=== PATIENT | male | born 1940 | race Caucasian/White ===

== ENCOUNTER 2020-06-04 12:20 | Inpatient (IN) ==
[2020-06-04] MEDS ORDERED: *HR* FentaNYL (PF) 100 MCG/2 ML VIAL IVP ONE (12:30)
[2020-06-04] MEDS ORDERED: Isovue-370 500 ML BOTTLE IVP ONE (13:56)
[2020-06-04 14:26] LABS: Basophils % 0.3 %; Eosinophils % 0.3 %; Hematocrit 49.6 % (37.5-50.1); Hemoglobin 16.3 g/dL (12.9-16.9); Immature Granulocytes % 0.5 % (0-4); Lymphocytes # 1.2 K/mcL (0.6-4.6); Mean Corpuscular HGB Conc 32.9 g/dL (31.6-35.5); Mean Corpuscular Hemoglobin 30.5 pg (28.0-33.3); Mean Corpuscular Volume 92.9 fL (83.0-100.0); Mean Platelet Volume 11.1 fL (9.4-12.4); Monocytes # 1.4 K/mcL (0.0-1.3); Monocytes % 11.5 %; Neutrophils # 9.2 K/mcL (1.6-8.9); Platelet Count 163 K/mcL (140-400); Red Blood Count 5.34 M/mcL (4.19-5.50); Red Cell Distribution Width 13.4 % (11.5-14.5); Segmented Neutrophils % 77.4 %; White Blood Count 11.9 K/mcL (4.3-11.1)
[2020-06-04 14:45] LABS: BUN/Creatinine Ratio 14 (6-26); Blood Urea Nitrogen 14 mg/dL (8-23); Calcium 9.6 mg/dL (8.6-10.3); Carbon Dioxide 33 mEq/L (23-29); Chloride 101 mEq/L (98-107); Glucose 125 mg/dL (70-105); Osmolality,Calculated 292 (280-300); Sodium 140 mEq/L (136-145); eGFR For African Americans > 60 (> 60); eGFR For Non-African Americans > 60 (> 60)
[2020-06-04] MEDS ORDERED: Naloxone 0.4 MG/ML INJ IVP PRN (16:43)
[2020-06-04] MEDS ORDERED: Acetaminophen 325 MG TABLET PO PRN (16:56)
[2020-06-04] MEDS: *HR* OxyCODONE Immed Rel 5 MG TABLET PO PRN (18:07)
[2020-06-04] MEDS ORDERED: Albuterol 2.5 MG/3 ML NEBULIZER IH PRN (20:48)
[2020-06-05 01:43] LABS: Basophils % 0.2 %; Eosinophils % 0.2 %; Hematocrit 45.1 % (37.5-50.1); Hemoglobin 15.1 g/dL (12.9-16.9); Immature Granulocytes % 0.3 % (0-4); Lymphocytes # 1.6 K/mcL (0.6-4.6); Lymphocytes % 12.5 %; Mean Corpuscular HGB Conc 33.5 g/dL (31.6-35.5); Mean Corpuscular Volume 89.7 fL (83.0-100.0); Mean Platelet Volume 11.2 fL (9.4-12.4); Monocytes # 1.9 K/mcL (0.0-1.3); Monocytes % 14.6 %; Neutrophils # 9.5 K/mcL (1.6-8.9); Platelet Count 167 K/mcL (140-400); Red Blood Count 5.03 M/mcL (4.19-5.50); Red Cell Distribution Width 13.5 % (11.5-14.5); Segmented Neutrophils % 72.2 %; White Blood Count 13.1 K/mcL (4.3-11.1)
[2020-06-05 02:04] LABS: BUN/Creatinine Ratio 13 (6-26); Blood Urea Nitrogen 11 mg/dL (8-23); Calcium 9.1 mg/dL (8.6-10.3); Carbon Dioxide 29 mEq/L (23-29); Chloride 101 mEq/L (98-107); Glucose 152 mg/dL (70-105); Osmolality,Calculated 290 (280-300); Potassium 3.9 mEq/L (3.5-5.1); Sodium 139 mEq/L (136-145); eGFR For African Americans > 60 (> 60); eGFR For Non-African Americans > 60 (> 60)
[2020-06-05] MEDS ORDERED: Ondansetron 4 MG/2 ML VIAL IVP PRN ×2 (02:19→17:38)
[2020-06-05 02:49] LABS: ABG Base Excess 4 mEq/L (-2 to 3); ABG HCO3 31 mEq/L (21-27); ABG Oxygen Saturation 84 % (95-98); ABG PCO2 53 mmHg (35-45); ABG PH 7.37 pH Units (7.32-7.45); ABG PO2 51 mmHg (85-104); ABG TCO2 33 mEq/L (20-26)
[2020-06-05] MEDS ORDERED: amLODIPine 5 MG TABLET PO SCH (09:00)
[2020-06-05] MEDS: Ipratropium/Albuterol Neb 3 ML IH SCH ×5 (09:46→23:09)
[2020-06-05] MEDS: *HR* OxyCODONE Immed Rel 5 MG TABLET PO PRN (13:09)
[2020-06-05] MEDS ORDERED: Lidocaine -MPF 2% 2 ML VIAL ONE (13:35)
[2020-06-05] MEDS ORDERED: *HR* Propofol 200 MG/20 ML VIAL IVP ONE ×2 (13:35→15:45)
[2020-06-05] MEDS ORDERED: *HR* HYDROmorphone PF 0.5 MG/0.5 ML SYRINGE IVP PRN (15:20)
[2020-06-05] MEDS ORDERED: *HR* Succinylcholine 200 MG/10 ML VIAL IVP ONE (15:25)
[2020-06-05] MEDS ORDERED: Ondansetron 4 MG/2 ML VIAL ONE (15:26)
[2020-06-05] MEDS ORDERED: *HR* Rocuronium Bromide 50 MG/5 ML VIAL ONE (15:53)
[2020-06-05] MEDS ORDERED: EPHEDrine 50 MG/ML VIAL ONE (15:54)
[2020-06-05] MEDS ORDERED: *HR* OxyCODONE Immed Rel 5 MG TABLET PO PRN (17:38)
[2020-06-05] MEDS ORDERED: Albuterol 2.5 MG/3 ML NEBULIZER IH PRN (17:38)
[2020-06-05] MEDS ORDERED: Naloxone 0.4 MG/ML INJ IVP PRN (17:38)
[2020-06-05] MEDS ORDERED: Acetaminophen 325 MG TABLET PO PRN (17:38)
[2020-06-05] MEDS ORDERED: *HR* Heparin 5,000 UNIT/ML VIAL SQ SCH ×2 (18:00)
[2020-06-05 19:02] LABS: ABG Base Excess 2 mEq/L (-2 to 3); ABG HCO3 30 mEq/L (21-27); ABG Oxygen Saturation 89 % (95-98); ABG PCO2 60 mmHg (35-45); ABG PO2 63 mmHg (85-104); ABG TCO2 32 mEq/L (20-26); Blood Gas Modality CPAP/PS
[2020-06-05] MEDS ORDERED: 0.9 % Sodium Chloride 1,000 ML IVC ONE (21:22)
[2020-06-05] MEDS: CeFAZolin 2 GM/120 ML BAG IVPB SCH (23:50)
[2020-06-06] MEDS ORDERED: CeFAZolin 2 GM/120 ML BAG IVPB SCH
[2020-06-06 03:58] LABS: Hematocrit 42.5 % (37.5-50.1)
[2020-06-06 03:59] LABS: Hemoglobin 13.5 g/dL (12.9-16.9)
[2020-06-06] MEDS: Ipratropium/Albuterol Neb 3 ML IH SCH ×5 (04:13→19:37)
[2020-06-06 04:19] LABS: Calcium 8.1 mg/dL (8.6-10.3); Potassium 4.7 mEq/L (3.5-5.1)
[2020-06-06] MEDS: CeFAZolin 2 GM/120 ML BAG IVPB SCH (08:13)
[2020-06-06] MEDS: amLODIPine 5 MG TABLET PO SCH (08:14)
[2020-06-06] MEDS: Aspirin Enteric Coated 325 MG Tablet PO SCH (08:14)
[2020-06-06] MEDS ORDERED: Aspirin Enteric Coated 325 MG Tablet PO SCH (09:00)
[2020-06-06] MEDS: Ringers Solution, Lactated 1,000 ML IVC SCH (11:25)
[2020-06-07] MEDS: Ipratropium/Albuterol Neb 3 ML IH SCH ×7 (00:43→23:25)
[2020-06-07 01:35] LABS: Basophils % 0.2 %; Eosinophils # 0.1 K/mcL (0.0-0.6); Eosinophils % 0.3 %; Hematocrit 36.6 % (37.5-50.1); Hemoglobin 11.5 g/dL (12.9-16.9); Immature Granulocytes % 0.6 % (0-4); Lymphocytes # 1.5 K/mcL (0.6-4.6); Lymphocytes % 8.4 %; Mean Corpuscular HGB Conc 31.4 g/dL (31.6-35.5); Mean Corpuscular Hemoglobin 29.6 pg (28.0-33.3); Mean Corpuscular Volume 94.3 fL (83.0-100.0); Mean Platelet Volume 11.2 fL (9.4-12.4); Monocytes # 3.1 K/mcL (0.0-1.3); Monocytes % 16.9 %; Neutrophils # 13.4 K/mcL (1.6-8.9); Platelet Count 141 K/mcL (140-400); Red Blood Count 3.88 M/mcL (4.19-5.50); Red Cell Distribution Width 13.9 % (11.5-14.5); Segmented Neutrophils % 73.6 %; White Blood Count 18.2 K/mcL (4.3-11.1)
[2020-06-07 01:35] LABS: Bilirubin,Urine Negative (Negative); Blood,Urine Large (Negative); Clarity,Urine Clear (Clear); Color,Urine Yellow (Yellow); Glucose,Urine (UA) Normal (Normal); Ketones,Urine Trace mg/dL (Negative); Leukocyte Esterase,Urine Trace (Negative); Mucus,Urine Few per lpf (None-Few); Nitrite,Urine Negative (Negative); PH,Urine 5.5 pH Units (5.0-8.0); Protein,Urine 30 mg/dL (Neg-Trace); RBC,Urine TNTC per hpf (0-3); Specific Gravity,Urine 1.024 (1.010-1.025); Urobilinogen,Urine Normal (Normal)
[2020-06-07 01:49] LABS: ABG Base Excess 5 mEq/L (-2 to 3); ABG HCO3 32 mEq/L (21-27); ABG Oxygen Saturation 91 % (95-98); ABG PCO2 59 mmHg (35-45); ABG PH 7.34 pH Units (7.32-7.45); ABG PO2 66 mmHg (85-104); ABG TCO2 34 mEq/L (20-26)
[2020-06-07 02:01] LABS: BUN/Creatinine Ratio 25 (6-26); Blood Urea Nitrogen 34 mg/dL (8-23); Calcium 7.9 mg/dL (8.6-10.3); Carbon Dioxide 26 mEq/L (23-29); Chloride 98 mEq/L (98-107); Glucose 162 mg/dL (70-105); Osmolality,Calculated 289 (280-300); Potassium 4.3 mEq/L (3.5-5.1); Sodium 134 mEq/L (136-145); eGFR For African Americans > 60 (> 60); eGFR For Non-African Americans 51 (> 60)
[2020-06-07 07:59] LABS: ABG Base Excess 5 mEq/L (-2 to 3); ABG HCO3 32 mEq/L (21-27); ABG Oxygen Saturation 92 % (95-98); ABG PCO2 55 mmHg (35-45); ABG PH 7.37 pH Units (7.32-7.45); ABG PO2 69 mmHg (85-104); ABG TCO2 33 mEq/L (20-26)
[2020-06-07] MEDS ORDERED: Perflutren Lipid Microsphere 1.3 ML in 0.9 % Sodium Chloride 8.7 ML IVP PRN (08:11)
[2020-06-07] MEDS: Ringers Solution, Lactated 1,000 ML IVC SCH ×3 (09:01→13:33)
[2020-06-07] MEDS: Piperacillin/Tazobactam 3.375 GM in 0.9 % Sodium Chloride Mini Bag 100 ML IVPB SCH ×3 (09:08→23:52)
[2020-06-07 09:14] LABS: Adenovirus Not Detected (Not Detect); Coronavirus 229E Not Detected (Not Detect); Coronavirus HKU1 Not Detected (Not Detect); Coronavirus NL63 Not Detected (Not Detect); Coronavirus OC43 Not Detected (Not Detect)
[2020-06-07 09:15] LABS: Bordetella Pertussis Not Detected (Not Detect); Chlamydophila pneumoniae Not Detected (Not Detect); Human Metapneumovirus Not Detected (Not Detect); Human Rhinovirus/Enterovirus Not Detected (Not Detect); Influenza A Subtype 2009 H1 Not Detected (Not Detect); Influenza B Not Detected (Not Detect); Mycoplasma pneumoniae Not Detected (Not Detect); Parainfluenza Virus 1 Not Detected (Not Detect); Parainfluenza Virus 2 Not Detected (Not Detect); Parainfluenza Virus 3 Not Detected (Not Detect); Parainfluenza Virus 4 Not Detected (Not Detect); Respiratory Syncytial Virus Not Detected (Not Detect); SARS-CoV-2 Not Detected (Not Detect)
[2020-06-07] MEDS: Aspirin Enteric Coated 325 MG Tablet PO SCH (09:53)
[2020-06-07] MEDS: amLODIPine 5 MG TABLET PO SCH (09:53)
[2020-06-07] MEDS ORDERED: Ringers Solution, Lactated 1,000 ML IVC SCH (13:51)
[2020-06-07 16:11] LABS: Protein/Creatinine Ratio,Urine 0.26 mg/mg (0.00-0.20); Sodium, Urine 10.4 mEq/L
[2020-06-07] MEDS ORDERED: 0.9 % Sodium Chloride 1,000 ML ONE (17:35)
[2020-06-07] MEDS: 0.9 % Sodium Chloride 1,000 ML IVC SCH (18:01)
[2020-06-08] MEDS ORDERED: *HR* Metoprolol 5 MG/5 ML VIAL IVP ONE ×2 (01:25→01:26)
[2020-06-08 02:21] LABS: Alanine Aminotransferase 7 Units/L (7-52); Albumin 3.1 g/dL (3.5-5.7); Albumin/Globulin Ratio 1.1 (1.1-2.2); Alkaline Phosphatase 77 Units/L (34-104); Aspartate Amino Transferase 17 Units/L (13-39); BUN/Creatinine Ratio 27 (6-26); Bilirubin,Total 2.1 mg/dL (0.3-1.0); Blood Urea Nitrogen 31 mg/dL (8-23); Carbon Dioxide 27 mEq/L (23-29); Chloride 102 mEq/L (98-107); Globulin 2.8 g/dL (2.4-3.5); Glucose 156 mg/dL (70-105); Osmolality,Calculated 296 (280-300); Potassium 4.3 mEq/L (3.5-5.1); Sodium 138 mEq/L (136-145); Total Protein 5.9 g/dL (6.4-8.9); Troponin I < 0.03 ng/mL (< 0.04); eGFR For African Americans > 60 (> 60); eGFR For Non-African Americans > 60 (> 60)
[2020-06-08 03:20] LABS: Basophils % 0.2 %; Eosinophils # 0.1 K/mcL (0.0-0.6); Eosinophils % 0.7 %; Hematocrit 33.2 % (37.5-50.1); Hemoglobin 10.7 g/dL (12.9-16.9); Immature Granulocytes % 0.3 % (0-4); Lymphocytes % 8.8 %; Mean Corpuscular HGB Conc 32.2 g/dL (31.6-35.5); Mean Corpuscular Hemoglobin 30.4 pg (28.0-33.3); Mean Corpuscular Volume 94.3 fL (83.0-100.0); Mean Platelet Volume 11.1 fL (9.4-12.4); Monocytes # 2.1 K/mcL (0.0-1.3); Monocytes % 18.1 %; Neutrophils # 8.5 K/mcL (1.6-8.9); Platelet Count 156 K/mcL (140-400); Red Blood Count 3.52 M/mcL (4.19-5.50); Segmented Neutrophils % 71.9 %; White Blood Count 11.8 K/mcL (4.3-11.1)
[2020-06-08] MEDS: Ipratropium/Albuterol Neb 3 ML IH SCH ×6 (03:29→23:07)
[2020-06-08 03:54] LABS: Platelet Estimate Normal (Normal)
[2020-06-08] MEDS: *HR* Enoxaparin 40 MG/0.4 ML SYRINGE SQ SCH (06:43)
[2020-06-08] MEDS: 0.9 % Sodium Chloride 1,000 ML IVC SCH (08:25)
[2020-06-08] MEDS: Piperacillin/Tazobactam 3.375 GM in 0.9 % Sodium Chloride Mini Bag 100 ML IVPB SCH ×2 (08:25→16:35)
[2020-06-08] MEDS: *HR* Metoprolol 5 MG/5 ML VIAL IVP SCH ×3 (11:42→23:58)
[2020-06-08] MEDS ORDERED: E-Z-PAQUE (BARIUM SULF) SUSP 1 BOTTLE PO ONE (14:45)
[2020-06-08] MEDS ORDERED: E-Z-HD (BARIUM SULF) SUSPENSION PO ONE (14:45)
[2020-06-08] MEDS: amLODIPine 5 MG TABLET PO SCH (16:08)
[2020-06-09] MEDS: 0.9 % Sodium Chloride 1,000 ML IVC SCH ×2 (00:02→17:17)
[2020-06-09 00:56] LABS: Basophils % 0.3 %; Eosinophils # 0.1 K/mcL (0.0-0.6); Eosinophils % 1.3 %; Hematocrit 32.2 % (37.5-50.1); Hemoglobin 10.4 g/dL (12.9-16.9); Immature Granulocytes % 0.2 % (0-4); Lymphocytes # 1.1 K/mcL (0.6-4.6); Lymphocytes % 10.3 %; Mean Corpuscular HGB Conc 32.3 g/dL (31.6-35.5); Mean Corpuscular Hemoglobin 30.7 pg (28.0-33.3); Mean Platelet Volume 10.6 fL (9.4-12.4); Monocytes # 1.9 K/mcL (0.0-1.3); Monocytes % 18.3 %; Neutrophils # 7.1 K/mcL (1.6-8.9); Platelet Count 179 K/mcL (140-400); Red Blood Count 3.39 M/mcL (4.19-5.50); Red Cell Distribution Width 14.3 % (11.5-14.5); Segmented Neutrophils % 69.6 %; White Blood Count 10.2 K/mcL (4.3-11.1)
[2020-06-09 02:43] LABS: Platelet Estimate Normal (Normal)
[2020-06-09] MEDS: Ipratropium/Albuterol Neb 3 ML IH SCH ×6 (03:14→23:49)
[2020-06-09] MEDS: *HR* Metoprolol 5 MG/5 ML VIAL IVP SCH ×2 (06:10→12:50)
[2020-06-09] MEDS: *HR* Enoxaparin 40 MG/0.4 ML SYRINGE SQ SCH (06:11)
[2020-06-09] MEDS: Piperacillin/Tazobactam 3.375 GM in 0.9 % Sodium Chloride Mini Bag 100 ML IVPB SCH ×3 (09:17→17:16)
[2020-06-09] MEDS: amLODIPine 5 MG TABLET PO SCH (09:17)
[2020-06-09] MEDS: Nystatin SUSP 5 ML UD.LIQ PO SCH ×3 (12:49→20:21)
[2020-06-09] MEDS ORDERED: Isovue-370 500 ML BOTTLE IVP ONE (12:59)
[2020-06-09] MEDS: methylPREDNISolone 125 MG/2 ML VIAL IVP SCH (17:16)
[2020-06-10] MEDS: Piperacillin/Tazobactam 3.375 GM in 0.9 % Sodium Chloride Mini Bag 100 ML IVPB SCH ×4 (00:13→23:55)
[2020-06-10] MEDS: methylPREDNISolone 125 MG/2 ML VIAL IVP SCH ×2 (00:14→09:18)
[2020-06-10 01:28] LABS: Basophils % 0.1 %; Hematocrit 32.1 % (37.5-50.1); Hemoglobin 10.5 g/dL (12.9-16.9); Immature Granulocytes % 0.4 % (0-4); Lymphocytes # 0.5 K/mcL (0.6-4.6); Lymphocytes % 7.6 %; Mean Corpuscular HGB Conc 32.7 g/dL (31.6-35.5); Mean Corpuscular Hemoglobin 30.8 pg (28.0-33.3); Mean Corpuscular Volume 94.1 fL (83.0-100.0); Mean Platelet Volume 10.7 fL (9.4-12.4); Monocytes # 0.3 K/mcL (0.0-1.3); Monocytes % 4.2 %; Neutrophils # 5.9 K/mcL (1.6-8.9); Platelet Count 175 K/mcL (140-400); Red Blood Count 3.41 M/mcL (4.19-5.50); Red Cell Distribution Width 14.3 % (11.5-14.5); Segmented Neutrophils % 87.7 %; White Blood Count 6.7 K/mcL (4.3-11.1)
[2020-06-10 01:48] LABS: BUN/Creatinine Ratio 26 (6-26); Blood Urea Nitrogen 23 mg/dL (8-23); Calcium 8.3 mg/dL (8.6-10.3); Carbon Dioxide 27 mEq/L (23-29); Chloride 109 mEq/L (98-107); Glucose 220 mg/dL (70-105); Osmolality,Calculated 308 (280-300); Potassium 4.7 mEq/L (3.5-5.1); Sodium 144 mEq/L (136-145); eGFR For African Americans > 60 (> 60); eGFR For Non-African Americans > 60 (> 60)
[2020-06-10] MEDS: Ipratropium/Albuterol Neb 3 ML IH SCH ×6 (03:48→23:46)
[2020-06-10] MEDS: *HR* Enoxaparin 40 MG/0.4 ML SYRINGE SQ SCH (06:14)
[2020-06-10] MEDS ORDERED: Lidocaine -MPF 2% 2 ML VIAL ONE (07:23)
[2020-06-10] MEDS ORDERED: Ondansetron 4 MG/2 ML VIAL ONE (07:23)
[2020-06-10] MEDS ORDERED: *HR* Rocuronium Bromide 50 MG/5 ML VIAL ONE (07:23)
[2020-06-10] MEDS ORDERED: *HR* Succinylcholine 200 MG/10 ML VIAL IVP ONE (07:23)
[2020-06-10] MEDS ORDERED: Lidocaine -MPF 4% 5 ML AMPUL ONE (07:24)
[2020-06-10] MEDS: Nystatin SUSP 5 ML UD.LIQ PO SCH ×4 (11:17→20:22)
[2020-06-10] MEDS: amLODIPine 5 MG TABLET PO SCH (11:17)
[2020-06-10 15:14] LABS: Source of Body Fluid LEFT LOWER LOBE LUNG
[2020-06-10] MEDS: MethylPREDNISolone 40 MG/ML VIAL IVP SCH ×2 (16:13→23:55)
[2020-06-10 18:59] LABS: Volume of Body Fluid 21 mL
[2020-06-10 19:00] LABS: Appearance of Body Fluid Cloudy (Clear)
[2020-06-11] MEDS: Ipratropium/Albuterol Neb 3 ML IH SCH ×6 (03:56→23:00)
[2020-06-11 04:56] LABS: Basophils % 0.1 %; Hematocrit 31.6 % (37.5-50.1); Hemoglobin 10.2 g/dL (12.9-16.9); Immature Granulocytes % 0.7 % (0-4); Lymphocytes # 0.6 K/mcL (0.6-4.6); Lymphocytes % 8.5 %; Mean Corpuscular HGB Conc 32.3 g/dL (31.6-35.5); Mean Corpuscular Hemoglobin 31.1 pg (28.0-33.3); Mean Corpuscular Volume 96.3 fL (83.0-100.0); Mean Platelet Volume 10.9 fL (9.4-12.4); Monocytes # 0.9 K/mcL (0.0-1.3); Neutrophils # 5.9 K/mcL (1.6-8.9); Platelet Count 219 K/mcL (140-400); Red Blood Count 3.28 M/mcL (4.19-5.50); Red Cell Distribution Width 14.2 % (11.5-14.5); Segmented Neutrophils % 78.7 %; White Blood Count 7.4 K/mcL (4.3-11.1)
[2020-06-11 05:16] LABS: BUN/Creatinine Ratio 30 (6-26); Blood Urea Nitrogen 29 mg/dL (8-23); Calcium 8.2 mg/dL (8.6-10.3); Carbon Dioxide 29 mEq/L (23-29); Chloride 105 mEq/L (98-107); Glucose 235 mg/dL (70-105); Osmolality,Calculated 305 (280-300); Potassium 4.2 mEq/L (3.5-5.1); Sodium 141 mEq/L (136-145); eGFR For African Americans > 60 (> 60); eGFR For Non-African Americans > 60 (> 60)
[2020-06-11] MEDS: *HR* Enoxaparin 40 MG/0.4 ML SYRINGE SQ SCH (06:21)
[2020-06-11] MEDS: MethylPREDNISolone 40 MG/ML VIAL IVP SCH ×2 (08:21→18:51)
[2020-06-11] MEDS: amLODIPine 5 MG TABLET PO SCH (08:22)
[2020-06-11] MEDS: Piperacillin/Tazobactam 3.375 GM in 0.9 % Sodium Chloride Mini Bag 100 ML IVPB SCH ×2 (08:26→18:52)
[2020-06-11] MEDS: Nystatin SUSP 5 ML UD.LIQ PO SCH ×4 (08:30→21:49)
[2020-06-12] MEDS: MethylPREDNISolone 40 MG/ML VIAL IVP SCH ×4 (00:11→23:07)
[2020-06-12] MEDS: Piperacillin/Tazobactam 3.375 GM in 0.9 % Sodium Chloride Mini Bag 100 ML IVPB SCH ×4 (00:12→23:07)
[2020-06-12 01:11] LABS: Basophils % 0.1 %; Hematocrit 29.2 % (37.5-50.1); Hemoglobin 9.4 g/dL (12.9-16.9); Immature Granulocytes % 1.2 % (0-4); Lymphocytes # 0.7 K/mcL (0.6-4.6); Lymphocytes % 8.7 %; Mean Corpuscular HGB Conc 32.2 g/dL (31.6-35.5); Mean Corpuscular Hemoglobin 30.1 pg (28.0-33.3); Mean Corpuscular Volume 93.6 fL (83.0-100.0); Mean Platelet Volume 11.1 fL (9.4-12.4); Monocytes % 13.3 %; Neutrophils # 5.9 K/mcL (1.6-8.9); Platelet Count 222 K/mcL (140-400); Red Blood Count 3.12 M/mcL (4.19-5.50); Red Cell Distribution Width 13.9 % (11.5-14.5); Segmented Neutrophils % 76.7 %; White Blood Count 7.7 K/mcL (4.3-11.1)
[2020-06-12 01:30] LABS: BUN/Creatinine Ratio 32 (6-26); Blood Urea Nitrogen 30 mg/dL (8-23); Carbon Dioxide 28 mEq/L (23-29); Chloride 104 mEq/L (98-107); Glucose 232 mg/dL (70-105); Osmolality,Calculated 298 (280-300); Potassium 4.5 mEq/L (3.5-5.1); Sodium 137 mEq/L (136-145); eGFR For African Americans > 60 (> 60); eGFR For Non-African Americans > 60 (> 60)
[2020-06-12] MEDS: Ipratropium/Albuterol Neb 3 ML IH SCH ×6 (04:18→23:20)
[2020-06-12] MEDS: *HR* Enoxaparin 40 MG/0.4 ML SYRINGE SQ SCH (04:44)
[2020-06-12] MEDS: amLODIPine 5 MG TABLET PO SCH (08:55)
[2020-06-12] MEDS: Nystatin SUSP 5 ML UD.LIQ PO SCH ×4 (08:56→20:46)
[2020-06-12] MEDS ORDERED: D5% in Water 1,000 ML IVC PRN (17:10)
[2020-06-12] MEDS ORDERED: *HR* Dextrose 50 % in Water (Vial) 50 ML VIAL IVP PRN (17:10)
[2020-06-12] MEDS ORDERED: Dextrose Gel 15 GM/37.5 ML TUBE PO PRN ×2 (17:10)
[2020-06-12] MEDS: Insulin LISPRO 300 UNITS/3 ML VIAL SUBQ SCH (20:46)
[2020-06-13 01:55] LABS: BUN/Creatinine Ratio 30 (6-26); Blood Urea Nitrogen 28 mg/dL (8-23); Calcium 8.1 mg/dL (8.6-10.3); Carbon Dioxide 27 mEq/L (23-29); Chloride 103 mEq/L (98-107); Glucose 248 mg/dL (70-105); Magnesium 1.9 mg/dL (1.6-2.6); Osmolality,Calculated 298 (280-300); Potassium 4.2 mEq/L (3.5-5.1); Sodium 137 mEq/L (136-145); eGFR For African Americans > 60 (> 60); eGFR For Non-African Americans > 60 (> 60)
[2020-06-13] MEDS: Ipratropium/Albuterol Neb 3 ML IH SCH ×6 (03:46→23:03)
[2020-06-13] MEDS: *HR* Enoxaparin 40 MG/0.4 ML SYRINGE SQ SCH (06:05)
[2020-06-13] MEDS: amLODIPine 5 MG TABLET PO SCH (08:25)
[2020-06-13] MEDS: Nystatin SUSP 5 ML UD.LIQ PO SCH ×4 (08:25→21:01)
[2020-06-13] MEDS: MethylPREDNISolone 40 MG/ML VIAL IVP SCH ×2 (08:26→16:17)
[2020-06-13] MEDS: Piperacillin/Tazobactam 3.375 GM in 0.9 % Sodium Chloride Mini Bag 100 ML IVPB SCH ×2 (08:26→16:16)
[2020-06-13] MEDS: Insulin LISPRO 300 UNITS/3 ML VIAL SUBQ SCH ×4 (08:26→21:00)
[2020-06-13] MEDS: Vancomycin 1,250 MG/262.5 ML IV.SOLN IVPB SCH (17:27)
[2020-06-14] MEDS: Piperacillin/Tazobactam 3.375 GM in 0.9 % Sodium Chloride Mini Bag 100 ML IVPB SCH ×3 (00:38→16:39)
[2020-06-14] MEDS: MethylPREDNISolone 40 MG/ML VIAL IVP SCH ×3 (00:45→16:39)
[2020-06-14 02:18] LABS: ABG Base Excess 4 mEq/L (-2 to 3); ABG HCO3 29 mEq/L (21-27); ABG Oxygen Saturation 95 % (95-98); ABG PCO2 43 mmHg (35-45); ABG PH 7.44 pH Units (7.32-7.45); ABG PO2 72 mmHg (85-104); ABG TCO2 30 mEq/L (20-26); Blood Gas Modality ASSIST CONTROL
[2020-06-14 02:34] LABS: Hemoglobin 10.9 g/dL (12.9-16.9); Mean Corpuscular HGB Conc 32.1 g/dL (31.6-35.5); Mean Corpuscular Hemoglobin 30.1 pg (28.0-33.3); Mean Corpuscular Volume 93.9 fL (83.0-100.0); Platelet Count 243 K/mcL (140-400); Red Blood Count 3.62 M/mcL (4.19-5.50); Red Cell Distribution Width 14.3 % (11.5-14.5); White Blood Count 10.2 K/mcL (4.3-11.1)
[2020-06-14 02:44] LABS: BUN/Creatinine Ratio 28 (6-26); Blood Urea Nitrogen 28 mg/dL (8-23); Carbon Dioxide 31 mEq/L (23-29); Chloride 103 mEq/L (98-107); Glucose 224 mg/dL (70-105); Osmolality,Calculated 294 (280-300); Potassium 4.8 mEq/L (3.5-5.1); Sodium 136 mEq/L (136-145); eGFR For African Americans > 60 (> 60); eGFR For Non-African Americans > 60 (> 60)
[2020-06-14] MEDS: Ipratropium/Albuterol Neb 3 ML IH SCH ×2 (03:53→07:40)
[2020-06-14] MEDS: *HR* Enoxaparin 40 MG/0.4 ML SYRINGE SQ SCH (05:57)
[2020-06-14] MEDS: Vancomycin 1,250 MG/262.5 ML IV.SOLN IVPB SCH ×2 (05:57→16:40)
[2020-06-14] MEDS: Nystatin SUSP 5 ML UD.LIQ PO SCH ×4 (09:20→21:53)
[2020-06-14] MEDS: amLODIPine 5 MG TABLET PO SCH (09:21)
[2020-06-14] MEDS: Insulin LISPRO 300 UNITS/3 ML VIAL SUBQ SCH ×4 (09:22→21:56)
[2020-06-14] MEDS: Acetylcysteine 10% 2 ML INHSOL IH SCH ×4 (11:15→23:18)
[2020-06-14] MEDS: Albuterol 2.5 MG/3 ML NEBULIZER IH SCH ×3 (15:36→23:18)
[2020-06-14] MEDS: Furosemide 20 MG/2 ML VIAL IVP SCH (17:59)
[2020-06-15] MEDS: MethylPREDNISolone 40 MG/ML VIAL IVP SCH ×3 (00:43→16:50)
[2020-06-15] MEDS: Piperacillin/Tazobactam 3.375 GM in 0.9 % Sodium Chloride Mini Bag 100 ML IVPB SCH ×3 (00:43→16:51)
[2020-06-15] MEDS: Albuterol 2.5 MG/3 ML NEBULIZER IH SCH ×6 (03:32→23:53)
[2020-06-15] MEDS: Acetylcysteine 10% 2 ML INHSOL IH SCH ×6 (03:32→23:53)
[2020-06-15 04:09] LABS: Hematocrit 34.9 % (37.5-50.1); Hemoglobin 11.1 g/dL (12.9-16.9); Mean Corpuscular HGB Conc 31.8 g/dL (31.6-35.5); Mean Corpuscular Hemoglobin 29.7 pg (28.0-33.3); Mean Corpuscular Volume 93.3 fL (83.0-100.0); Mean Platelet Volume 10.8 fL (9.4-12.4); Platelet Count 241 K/mcL (140-400); Red Blood Count 3.74 M/mcL (4.19-5.50); Red Cell Distribution Width 14.6 % (11.5-14.5)
[2020-06-15 04:31] LABS: BUN/Creatinine Ratio 33 (6-26); Blood Urea Nitrogen 31 mg/dL (8-23); Carbon Dioxide 29 mEq/L (23-29); Chloride 103 mEq/L (98-107); Glucose 218 mg/dL (70-105); Osmolality,Calculated 299 (280-300); Potassium 4.1 mEq/L (3.5-5.1); Sodium 138 mEq/L (136-145); eGFR For African Americans > 60 (> 60); eGFR For Non-African Americans > 60 (> 60)
[2020-06-15] MEDS: Vancomycin 1,500 MG/265 ML IV.SOLN IVPB SCH ×2 (06:00→17:30)
[2020-06-15] MEDS: *HR* Enoxaparin 40 MG/0.4 ML SYRINGE SQ SCH (06:01)
[2020-06-15] MEDS: amLODIPine 5 MG TABLET PO SCH (08:10)
[2020-06-15] MEDS: Insulin LISPRO 300 UNITS/3 ML VIAL SUBQ SCH ×4 (08:11→21:24)
[2020-06-15] MEDS: Furosemide 20 MG/2 ML VIAL IVP SCH ×2 (08:18→16:50)
[2020-06-15] MEDS: Nystatin SUSP 5 ML UD.LIQ PO SCH ×4 (08:18→20:01)
[2020-06-15] MEDS ORDERED: Lidocaine -MPF 4% 5 ML AMPUL ONE (10:33)
[2020-06-15] MEDS ORDERED: *HR* Succinylcholine 200 MG/10 ML VIAL IVP ONE (10:33)
[2020-06-15] MEDS ORDERED: *HR* FentaNYL (PF) 100 MCG/2 ML VIAL ONE (10:34)
[2020-06-15] MEDS ORDERED: *HR* Propofol 200 MG/20 ML VIAL IVP ONE (10:34)
[2020-06-15] MEDS ORDERED: Lidocaine -MPF 2% 2 ML VIAL ONE (10:35)
[2020-06-15] MEDS ORDERED: Ondansetron 4 MG/2 ML VIAL ONE (10:35)
[2020-06-15] MEDS ORDERED: *HR* HYDROmorphone PF 0.5 MG/0.5 ML SYRINGE IVP PRN (11:22)
[2020-06-15] MEDS ORDERED: *HR* OxyCODONE Immed Rel 5 MG TABLET PO PRN (11:22)
[2020-06-15] MEDS ORDERED: Promethazine 6.25 MG in Water for inj. (sterile) 20 ML IVPB PRN (11:22)
[2020-06-15] MEDS ORDERED: Ondansetron 4 MG/2 ML VIAL IVP PRN (11:22)
[2020-06-15 17:42] LABS: Appearance of Body Fluid Cloudy (Clear); Volume of Body Fluid 20 mL
[2020-06-16] MEDS: MethylPREDNISolone 40 MG/ML VIAL IVP SCH ×3 (00:38→16:22)
[2020-06-16] MEDS: Piperacillin/Tazobactam 3.375 GM in 0.9 % Sodium Chloride Mini Bag 100 ML IVPB SCH ×3 (00:38→16:22)
[2020-06-16] MEDS: Acetylcysteine 10% 2 ML INHSOL IH SCH ×6 (03:46→23:40)
[2020-06-16] MEDS: Albuterol 2.5 MG/3 ML NEBULIZER IH SCH ×6 (03:46→23:40)
[2020-06-16] MEDS: *HR* Enoxaparin 40 MG/0.4 ML SYRINGE SQ SCH (05:50)
[2020-06-16] MEDS: Vancomycin 1,500 MG/265 ML IV.SOLN IVPB SCH (05:50)
[2020-06-16] MEDS: Furosemide 20 MG/2 ML VIAL IVP SCH ×2 (07:47→16:22)
[2020-06-16] MEDS: amLODIPine 5 MG TABLET PO SCH (07:47)
[2020-06-16] MEDS: Nystatin SUSP 5 ML UD.LIQ PO SCH ×4 (07:50→21:07)
[2020-06-16] MEDS: Insulin LISPRO 300 UNITS/3 ML VIAL SUBQ SCH ×4 (07:54→21:06)
[2020-06-17] MEDS: MethylPREDNISolone 40 MG/ML VIAL IVP SCH ×3 (00:43→16:58)
[2020-06-17 02:39] LABS: Hematocrit 35.2 % (37.5-50.1); Hemoglobin 11.6 g/dL (12.9-16.9); Mean Corpuscular Hemoglobin 30.4 pg (28.0-33.3); Mean Corpuscular Volume 92.4 fL (83.0-100.0); Mean Platelet Volume 10.9 fL (9.4-12.4); Platelet Count 230 K/mcL (140-400); Red Blood Count 3.81 M/mcL (4.19-5.50); Red Cell Distribution Width 15.2 % (11.5-14.5); White Blood Count 13.2 K/mcL (4.3-11.1)
[2020-06-17 03:00] LABS: BUN/Creatinine Ratio 33 (6-26); Blood Urea Nitrogen 33 mg/dL (8-23); Calcium 7.8 mg/dL (8.6-10.3); Carbon Dioxide 29 mEq/L (23-29); Chloride 100 mEq/L (98-107); Glucose 221 mg/dL (70-105); Osmolality,Calculated 298 (280-300); Potassium 3.9 mEq/L (3.5-5.1); Sodium 137 mEq/L (136-145); eGFR For African Americans > 60 (> 60); eGFR For Non-African Americans > 60 (> 60)
[2020-06-17] MEDS: Albuterol 2.5 MG/3 ML NEBULIZER IH SCH ×6 (03:48→23:05)
[2020-06-17] MEDS: Acetylcysteine 10% 2 ML INHSOL IH SCH ×6 (03:48→23:05)
[2020-06-17] MEDS ORDERED: Vancomycin 1,250 MG/262.5 ML IV.SOLN IVPB SCH (05:00)
[2020-06-17] MEDS: *HR* Enoxaparin 40 MG/0.4 ML SYRINGE SQ SCH (06:16)
[2020-06-17] MEDS: Insulin LISPRO 300 UNITS/3 ML VIAL SUBQ SCH ×4 (08:20→20:43)
[2020-06-17] MEDS: Furosemide 20 MG/2 ML VIAL IVP SCH ×2 (08:22→16:58)
[2020-06-17] MEDS: amLODIPine 5 MG TABLET PO SCH (08:24)
[2020-06-17] MEDS: Nystatin SUSP 5 ML UD.LIQ PO SCH ×4 (08:24→20:46)
[2020-06-17] MEDS ORDERED: Calcium Gluconate 1gm/50mL 1 GM/50 ML BAG IVPB SCH (08:30)
[2020-06-17] MEDS ORDERED: Multivit/Ca/Min/Fe/FA 1 TAB TABLET PO SCH (09:00)
[2020-06-17] MEDS ORDERED: E-Z-HD (BARIUM SULF) SUSPENSION PO ONE (10:48)
[2020-06-17] MEDS ORDERED: E-Z-PAQUE (BARIUM SULF) SUSP 1 BOTTLE PO ONE (10:48)
[2020-06-17 18:50] VITALS: BP 148/86
== END 2020-06-17 23:12 ==
LOC: 3NENU 12:20 → EMEROOARM 12:20 → SUATTDRO 17:00 → 3NENU 18:12 → 2NNU 06-07 11:44
PROVIDERS: ADMIT Internal Medicine; ATTEND Internal Medicine

== ENCOUNTER 2020-06-23 09:08 | Inpatient (IN) ==
[2020-06-23] MEDS ORDERED: Ondansetron ODT 4 MG TAB.RAPDIS SL PRN (14:22)
[2020-06-23] MEDS ORDERED: Naloxone 0.4 MG/ML INJ IVP PRN (14:22)
[2020-06-23] MEDS ORDERED: Dexamethasone Sodium Phos/PF 10 MG/ML VIAL IVP ONE (14:27)
[2020-06-23 15:27] LABS: Hemoglobin 12.3 g/dL (12.9-16.9)
[2020-06-23 15:29] LABS: Basophils # 0.1 K/mcL (0.0-0.2); Basophils % 0.2 %; Hematocrit 38.8 % (37.5-50.1); Immature Granulocytes % 1.4 % (0-4); Lymphocytes # 0.9 K/mcL (0.6-4.6); Lymphocytes % 2.3 %; Mean Corpuscular HGB Conc 31.7 g/dL (31.6-35.5); Mean Corpuscular Hemoglobin 31.2 pg (28.0-33.3); Mean Corpuscular Volume 98.5 fL (83.0-100.0); Monocytes # 3.4 K/mcL (0.0-1.3); Monocytes % 9.2 %; Platelet Count 180 K/mcL (140-400); Red Blood Count 3.94 M/mcL (4.19-5.50); Red Cell Distribution Width 16.8 % (11.5-14.5); Segmented Neutrophils % 86.9 %
[2020-06-23] MEDS: Piperacillin/Tazobactam 3.375 GM in 0.9 % Sodium Chloride Mini Bag 100 ML IVPB SCH ×2 (15:36→23:21)
[2020-06-23] MEDS: Vancomycin 1,250 MG/262.5 ML IV.SOLN IVPB SCH (15:36)
[2020-06-23] MEDS ORDERED: Albuterol 2.5 MG/3 ML NEBULIZER IH PRN (15:42)
[2020-06-23 15:45] LABS: Alanine Aminotransferase 69 Units/L (7-52); Albumin 2.9 g/dL (3.5-5.7); Albumin/Globulin Ratio 1.3 (1.1-2.2); Alkaline Phosphatase 115 Units/L (34-104); Aspartate Amino Transferase 28 Units/L (13-39); BUN/Creatinine Ratio 24 (6-26); Bilirubin,Total 2.8 mg/dL (0.3-1.0); Blood Urea Nitrogen 25 mg/dL (8-23); Calcium 7.6 mg/dL (8.6-10.3); Carbon Dioxide 30 mEq/L (23-29); Chloride 102 mEq/L (98-107); Globulin 2.2 g/dL (2.4-3.5); Glucose 169 mg/dL (70-105); Osmolality,Calculated 292 (280-300); Potassium 5.2 mEq/L (3.5-5.1); Sodium 137 mEq/L (136-145); Total Protein 5.1 g/dL (6.4-8.9); eGFR For African Americans > 60 (> 60); eGFR For Non-African Americans > 60 (> 60)
[2020-06-23 16:05] LABS: Adenovirus Not Detected (Not Detect); Coronavirus 229E Not Detected (Not Detect); Coronavirus HKU1 Not Detected (Not Detect); Coronavirus NL63 Not Detected (Not Detect); Coronavirus OC43 Not Detected (Not Detect); SARS-CoV-2 Not Detected (Not Detect)
[2020-06-23 16:06] LABS: Bordetella Pertussis Not Detected (Not Detect); Chlamydophila pneumoniae Not Detected (Not Detect); Human Metapneumovirus Not Detected (Not Detect); Human Rhinovirus/Enterovirus Not Detected (Not Detect); Influenza A Subtype 2009 H1 Not Detected (Not Detect); Influenza B Not Detected (Not Detect); Mycoplasma pneumoniae Not Detected (Not Detect); Parainfluenza Virus 1 Not Detected (Not Detect); Parainfluenza Virus 2 Not Detected (Not Detect); Parainfluenza Virus 3 Not Detected (Not Detect); Parainfluenza Virus 4 Not Detected (Not Detect); Respiratory Syncytial Virus Not Detected (Not Detect)
[2020-06-23 16:15] LABS: Neutrophils # 32.1 K/mcL (1.6-8.9); White Blood Count 36.9 K/mcL (4.3-11.1)
[2020-06-23] MEDS: Ipratropium/Albuterol Neb 3 ML IH SCH ×2 (16:50→21:17)
[2020-06-23 17:00] LABS: Troponin I < 0.03 ng/mL (< 0.04)
[2020-06-23 17:34] LABS: Bilirubin,Urine Negative (Negative); Blood,Urine Large (Negative); Calcium Oxalate Crystals,Urine Present; Clarity,Urine Clear (Clear); Color,Urine Light-Orange (Yellow); Glucose,Urine (UA) Normal (Normal); Ketones,Urine Negative (Negative); Leukocyte Esterase,Urine Negative (Negative); Nitrite,Urine Negative (Negative); Protein,Urine 50 mg/dL (Neg-Trace); RBC,Urine TNTC per hpf (0-3); Specific Gravity,Urine > 1.030 (1.010-1.025); Urobilinogen,Urine Normal (Normal)
[2020-06-23] MEDS: Doxycycline 100 MG in 0.9 % Sodium Chloride Mini Bag 100 ML IVPB SCH (18:27)
[2020-06-23] MEDS: Pantoprazole 40 MG VIAL IVP SCH (23:23)
[2020-06-24] MEDS: Vancomycin 1,250 MG/262.5 ML IV.SOLN IVPB SCH ×2 (03:28→15:39)
[2020-06-24 04:37] LABS: Basophils % 0.1 %; Immature Granulocytes % 0.7 % (0-4); Lymphocytes # 0.4 K/mcL (0.6-4.6); Lymphocytes % 1.8 %; Mean Corpuscular HGB Conc 31.4 g/dL (31.6-35.5); Mean Corpuscular Hemoglobin 31.1 pg (28.0-33.3); Mean Corpuscular Volume 98.9 fL (83.0-100.0); Mean Platelet Volume 11.1 fL (9.4-12.4); Monocytes # 1.3 K/mcL (0.0-1.3); Monocytes % 5.7 %; Neutrophils # 20.5 K/mcL (1.6-8.9); Platelet Count 135 K/mcL (140-400); Red Blood Count 3.54 M/mcL (4.19-5.50); Red Cell Distribution Width 16.6 % (11.5-14.5); Segmented Neutrophils % 91.7 %; White Blood Count 22.3 K/mcL (4.3-11.1)
[2020-06-24 04:39] LABS: INR 1.4; Prothrombin Time 16.5 Seconds (9.4-12.1)
[2020-06-24] MEDS: Ipratropium/Albuterol Neb 3 ML IH SCH ×4 (04:51→21:49)
[2020-06-24 04:58] LABS: BUN/Creatinine Ratio 31 (6-26); Blood Urea Nitrogen 26 mg/dL (8-23); Calcium 7.6 mg/dL (8.6-10.3); Carbon Dioxide 31 mEq/L (23-29); Chloride 105 mEq/L (98-107); Glucose 201 mg/dL (70-105); Osmolality,Calculated 302 (280-300); Phosphorous 3.7 mg/dL (2.7-4.5); Potassium 4.7 mEq/L (3.5-5.1); Sodium 141 mEq/L (136-145); Troponin I 0.03 ng/mL (< 0.04); eGFR For African Americans > 60 (> 60); eGFR For Non-African Americans > 60 (> 60)
[2020-06-24] MEDS: *HR* Enoxaparin 40 MG/0.4 ML SYRINGE SQ SCH (06:10)
[2020-06-24] MEDS: Doxycycline 100 MG in 0.9 % Sodium Chloride Mini Bag 100 ML IVPB SCH ×2 (06:10→18:19)
[2020-06-24] MEDS: Pantoprazole 40 MG VIAL IVP SCH (09:03)
[2020-06-24] MEDS: Piperacillin/Tazobactam 3.375 GM in 0.9 % Sodium Chloride Mini Bag 100 ML IVPB SCH ×3 (09:04→23:57)
[2020-06-24] MEDS: *HR* HYDROcodone/Acet 5/325 mg TABLET PO PRN (18:19)
[2020-06-24] MEDS: Ibuprofen 400 MG TABLET PO PRN (22:30)
[2020-06-25 02:49] LABS: Basophils % 0.1 %; Hematocrit 33.6 % (37.5-50.1); Hemoglobin 10.6 g/dL (12.9-16.9); Immature Granulocytes % 0.7 % (0-4); Lymphocytes # 0.8 K/mcL (0.6-4.6); Lymphocytes % 4.7 %; Mean Corpuscular HGB Conc 31.5 g/dL (31.6-35.5); Mean Corpuscular Volume 98.2 fL (83.0-100.0); Monocytes # 1.6 K/mcL (0.0-1.3); Monocytes % 9.2 %; Neutrophils # 14.6 K/mcL (1.6-8.9); Platelet Count 151 K/mcL (140-400); Red Blood Count 3.42 M/mcL (4.19-5.50); Red Cell Distribution Width 16.9 % (11.5-14.5); Segmented Neutrophils % 85.3 %; White Blood Count 17.1 K/mcL (4.3-11.1)
[2020-06-25 03:08] LABS: BUN/Creatinine Ratio 31 (6-26); Blood Urea Nitrogen 28 mg/dL (8-23); Calcium 7.8 mg/dL (8.6-10.3); Carbon Dioxide 31 mEq/L (23-29); Chloride 106 mEq/L (98-107); Glucose 151 mg/dL (70-105); Magnesium 2.1 mg/dL (1.6-2.6); Osmolality,Calculated 298 (280-300); Potassium 3.9 mEq/L (3.5-5.1); Sodium 140 mEq/L (136-145); eGFR For African Americans > 60 (> 60); eGFR For Non-African Americans > 60 (> 60)
[2020-06-25] MEDS: Vancomycin 1,250 MG/262.5 ML IV.SOLN IVPB SCH ×2 (03:43→15:03)
[2020-06-25] MEDS: Ipratropium/Albuterol Neb 3 ML IH SCH ×4 (04:09→21:35)
[2020-06-25] MEDS: *HR* Enoxaparin 40 MG/0.4 ML SYRINGE SQ SCH (05:30)
[2020-06-25] MEDS: Doxycycline 100 MG in 0.9 % Sodium Chloride Mini Bag 100 ML IVPB SCH ×2 (05:30→17:10)
[2020-06-25] MEDS: Pantoprazole 40 MG VIAL IVP SCH (08:25)
[2020-06-25] MEDS: Piperacillin/Tazobactam 3.375 GM in 0.9 % Sodium Chloride Mini Bag 100 ML IVPB SCH ×3 (08:27→23:16)
[2020-06-25] MEDS: MethylPREDNISolone 40 MG/ML VIAL IVP SCH ×2 (16:08→23:16)
[2020-06-25] MEDS: *HR* HYDROcodone/Acet 5/325 mg TABLET PO PRN (21:24)
[2020-06-26] MEDS: Vancomycin 1,250 MG/262.5 ML IV.SOLN IVPB SCH ×2 (03:19→16:17)
[2020-06-26] MEDS: Ipratropium/Albuterol Neb 3 ML IH SCH ×4 (03:37→22:53)
[2020-06-26 03:42] LABS: Hemoglobin 10.2 g/dL (12.9-16.9); Immature Granulocytes % 0.4 % (0-4); Lymphocytes # 0.2 K/mcL (0.6-4.6); Mean Corpuscular HGB Conc 31.9 g/dL (31.6-35.5); Mean Corpuscular Hemoglobin 31.3 pg (28.0-33.3); Mean Corpuscular Volume 98.2 fL (83.0-100.0); Mean Platelet Volume 11.1 fL (9.4-12.4); Monocytes # 0.3 K/mcL (0.0-1.3); Monocytes % 4.5 %; Platelet Count 123 K/mcL (140-400); Red Blood Count 3.26 M/mcL (4.19-5.50); Red Cell Distribution Width 16.8 % (11.5-14.5); Segmented Neutrophils % 91.1 %
[2020-06-26 03:45] LABS: White Blood Count 5.5 K/mcL (4.3-11.1)
[2020-06-26 04:06] LABS: BUN/Creatinine Ratio 32 (6-26); Blood Urea Nitrogen 23 mg/dL (8-23); Calcium 7.9 mg/dL (8.6-10.3); Carbon Dioxide 27 mEq/L (23-29); Chloride 108 mEq/L (98-107); Glucose 259 mg/dL (70-105); Magnesium 1.9 mg/dL (1.6-2.6); Osmolality,Calculated 305 (280-300); Potassium 4.6 mEq/L (3.5-5.1); Sodium 141 mEq/L (136-145); eGFR For African Americans > 60 (> 60); eGFR For Non-African Americans > 60 (> 60)
[2020-06-26] MEDS: Doxycycline 100 MG in 0.9 % Sodium Chloride Mini Bag 100 ML IVPB SCH ×2 (05:57→18:31)
[2020-06-26] MEDS: *HR* Enoxaparin 40 MG/0.4 ML SYRINGE SQ SCH (05:57)
[2020-06-26] MEDS: Piperacillin/Tazobactam 3.375 GM in 0.9 % Sodium Chloride Mini Bag 100 ML IVPB SCH ×3 (08:57→23:36)
[2020-06-26] MEDS: MethylPREDNISolone 40 MG/ML VIAL IVP SCH ×3 (08:57→23:36)
[2020-06-26] MEDS: Pantoprazole 40 MG VIAL IVP SCH (08:57)
[2020-06-26] MEDS ORDERED: E-Z-HD (BARIUM SULF) SUSPENSION PO ONE (12:05)
[2020-06-26] MEDS ORDERED: E-Z-PAQUE (BARIUM SULF) SUSP 1 BOTTLE PO ONE (12:05)
[2020-06-26] MEDS: *HR* HYDROcodone/Acet 5/325 mg TABLET PO PRN (22:24)
[2020-06-27] MEDS: Vancomycin 1,250 MG/262.5 ML IV.SOLN IVPB SCH ×2 (02:26→16:53)
[2020-06-27 02:54] LABS: Hematocrit 30.5 % (37.5-50.1); Hemoglobin 9.7 g/dL (12.9-16.9); Immature Granulocytes % 0.4 % (0-4); Lymphocytes # 0.3 K/mcL (0.6-4.6); Lymphocytes % 5.6 %; Mean Corpuscular HGB Conc 31.8 g/dL (31.6-35.5); Mean Corpuscular Hemoglobin 31.5 pg (28.0-33.3); Mean Platelet Volume 10.9 fL (9.4-12.4); Monocytes # 0.3 K/mcL (0.0-1.3); Monocytes % 6.2 %; Neutrophils # 4.7 K/mcL (1.6-8.9); Platelet Count 112 K/mcL (140-400); Red Blood Count 3.08 M/mcL (4.19-5.50); Red Cell Distribution Width 16.6 % (11.5-14.5); Segmented Neutrophils % 87.8 %; White Blood Count 5.4 K/mcL (4.3-11.1)
[2020-06-27 03:15] LABS: BUN/Creatinine Ratio 32 (6-26); Blood Urea Nitrogen 25 mg/dL (8-23); Calcium 7.5 mg/dL (8.6-10.3); Carbon Dioxide 28 mEq/L (23-29); Chloride 106 mEq/L (98-107); Glucose 301 mg/dL (70-105); Magnesium 1.9 mg/dL (1.6-2.6); Osmolality,Calculated 304 (280-300); Potassium 4.5 mEq/L (3.5-5.1); Sodium 139 mEq/L (136-145); eGFR For African Americans > 60 (> 60); eGFR For Non-African Americans > 60 (> 60)
[2020-06-27] MEDS: Ipratropium/Albuterol Neb 3 ML IH SCH ×4 (04:38→22:55)
[2020-06-27] MEDS: Doxycycline 100 MG in 0.9 % Sodium Chloride Mini Bag 100 ML IVPB SCH ×2 (05:41→16:55)
[2020-06-27] MEDS: *HR* Enoxaparin 40 MG/0.4 ML SYRINGE SQ SCH (05:42)
[2020-06-27] MEDS ORDERED: D5% in Water 1,000 ML IVC PRN ×2 (06:15→12:11)
[2020-06-27] MEDS ORDERED: *HR* Dextrose 50 % in Water (Vial) 50 ML VIAL IVP PRN ×2 (06:15→12:11)
[2020-06-27] MEDS ORDERED: Dextrose Gel 15 GM/37.5 ML TUBE PO PRN ×4 (06:15→12:11)
[2020-06-27] MEDS: Ibuprofen 400 MG TABLET PO PRN (06:29)
[2020-06-27] MEDS: MethylPREDNISolone 40 MG/ML VIAL IVP SCH (07:42)
[2020-06-27] MEDS: Insulin LISPRO 300 UNITS/3 ML VIAL SUBQ SCH ×4 (07:42→20:16)
[2020-06-27] MEDS: Piperacillin/Tazobactam 3.375 GM in 0.9 % Sodium Chloride Mini Bag 100 ML IVPB SCH ×3 (07:43→23:49)
[2020-06-27] MEDS ORDERED: Ibuprofen 400 MG TABLET PO PRN (12:11)
[2020-06-27] MEDS ORDERED: Ondansetron ODT 4 MG TAB.RAPDIS SL PRN (12:11)
[2020-06-27] MEDS ORDERED: Naloxone 0.4 MG/ML INJ IVP PRN (12:11)
[2020-06-27] MEDS ORDERED: Albuterol 2.5 MG/3 ML NEBULIZER IH PRN (12:11)
[2020-06-27] MEDS: *HR* HYDROcodone/Acet 5/325 mg TABLET PO PRN (20:17)
[2020-06-27] MEDS ORDERED: Insulin LISPRO 300 UNITS/3 ML VIAL SUBQ SCH (21:00)
[2020-06-28 01:15] LABS: Hematocrit 33.4 % (37.5-50.1); Hemoglobin 10.4 g/dL (12.9-16.9); Immature Granulocytes % 0.4 % (0-4); Lymphocytes # 0.9 K/mcL (0.6-4.6); Lymphocytes % 8.5 %; Mean Corpuscular HGB Conc 31.1 g/dL (31.6-35.5); Mean Corpuscular Volume 96.3 fL (83.0-100.0); Mean Platelet Volume 11.2 fL (9.4-12.4); Monocytes # 1.2 K/mcL (0.0-1.3); Monocytes % 11.5 %; Neutrophils # 8.3 K/mcL (1.6-8.9); Platelet Count 134 K/mcL (140-400); Red Blood Count 3.47 M/mcL (4.19-5.50); Red Cell Distribution Width 16.3 % (11.5-14.5); Segmented Neutrophils % 79.6 %
[2020-06-28 01:16] LABS: White Blood Count 10.4 K/mcL (4.3-11.1)
[2020-06-28 01:38] LABS: BUN/Creatinine Ratio 41 (6-26); Blood Urea Nitrogen 32 mg/dL (8-23); Calcium 7.8 mg/dL (8.6-10.3); Carbon Dioxide 25 mEq/L (23-29); Chloride 108 mEq/L (98-107); Glucose 142 mg/dL (70-105); Magnesium 1.6 mg/dL (1.6-2.6); Osmolality,Calculated 299 (280-300); Sodium 140 mEq/L (136-145); eGFR For African Americans > 60 (> 60); eGFR For Non-African Americans > 60 (> 60)
[2020-06-28] MEDS: Vancomycin 1,250 MG/262.5 ML IV.SOLN IVPB SCH ×2 (03:47→17:28)
[2020-06-28] MEDS: Ipratropium/Albuterol Neb 3 ML IH SCH ×4 (04:33→22:27)
[2020-06-28] MEDS: Doxycycline 100 MG in 0.9 % Sodium Chloride Mini Bag 100 ML IVPB SCH ×2 (05:40→19:58)
[2020-06-28] MEDS ORDERED: *HR* Enoxaparin 40 MG/0.4 ML SYRINGE SQ SCH (06:00)
[2020-06-28] MEDS: Piperacillin/Tazobactam 3.375 GM in 0.9 % Sodium Chloride Mini Bag 100 ML IVPB SCH ×2 (08:04→17:28)
[2020-06-28] MEDS: MethylPREDNISolone 40 MG/ML VIAL IVP SCH (08:05)
[2020-06-28] MEDS: Insulin LISPRO 300 UNITS/3 ML VIAL SUBQ SCH ×4 (08:10→21:30)
[2020-06-28] MEDS: Apixaban 5 MG TABLET PO SCH ×2 (09:07→21:34)
[2020-06-28] MEDS ORDERED: Isovue-370 500 ML BOTTLE IVP ONE (10:52)
[2020-06-28] MEDS: Furosemide 40 MG/4 ML VIAL IVP SCH ×2 (13:04→21:34)
[2020-06-29] MEDS: Piperacillin/Tazobactam 3.375 GM in 0.9 % Sodium Chloride Mini Bag 100 ML IVPB SCH ×2 (00:14→09:27)
[2020-06-29] MEDS: Vancomycin 1,250 MG/262.5 ML IV.SOLN IVPB SCH (03:47)
[2020-06-29] MEDS: Ipratropium/Albuterol Neb 3 ML IH SCH ×4 (04:36→22:11)
[2020-06-29 05:53] LABS: Basophils % 0.1 %; Eosinophils # 0.1 K/mcL (0.0-0.6); Eosinophils % 1.9 %; Hematocrit 33.7 % (37.5-50.1); Hemoglobin 10.9 g/dL (12.9-16.9); Immature Granulocytes % 0.4 % (0-4); Lymphocytes # 1.2 K/mcL (0.6-4.6); Lymphocytes % 15.5 %; Mean Corpuscular HGB Conc 32.3 g/dL (31.6-35.5); Mean Corpuscular Hemoglobin 30.6 pg (28.0-33.3); Mean Corpuscular Volume 94.7 fL (83.0-100.0); Mean Platelet Volume 11.1 fL (9.4-12.4); Monocytes % 13.8 %; Neutrophils # 5.2 K/mcL (1.6-8.9); Platelet Count 119 K/mcL (140-400); Red Blood Count 3.56 M/mcL (4.19-5.50); Segmented Neutrophils % 68.3 %; White Blood Count 7.6 K/mcL (4.3-11.1)
[2020-06-29 06:12] LABS: BUN/Creatinine Ratio 33 (6-26); Blood Urea Nitrogen 26 mg/dL (8-23); Calcium 8.2 mg/dL (8.6-10.3); Carbon Dioxide 32 mEq/L (23-29); Chloride 99 mEq/L (98-107); Glucose 139 mg/dL (70-105); Magnesium 1.5 mg/dL (1.6-2.6); Osmolality,Calculated 293 (280-300); Potassium 3.6 mEq/L (3.5-5.1); Sodium 138 mEq/L (136-145); eGFR For African Americans > 60 (> 60); eGFR For Non-African Americans > 60 (> 60)
[2020-06-29] MEDS: Apixaban 5 MG TABLET PO SCH ×2 (08:27→19:57)
[2020-06-29] MEDS: Doxycycline 100 MG in 0.9 % Sodium Chloride Mini Bag 100 ML IVPB SCH (08:28)
[2020-06-29] MEDS: Furosemide 40 MG/4 ML VIAL IVP SCH ×2 (08:28→19:57)
[2020-06-29] MEDS: MethylPREDNISolone 40 MG/ML VIAL IVP SCH (08:28)
[2020-06-29] MEDS: Insulin LISPRO 300 UNITS/3 ML VIAL SUBQ SCH ×4 (08:29→19:57)
[2020-06-30] MEDS: Ipratropium/Albuterol Neb 3 ML IH SCH ×4 (04:06→21:55)
[2020-06-30] MEDS: levoFLOXacin 750 MG TABLET PO SCH (08:02)
[2020-06-30] MEDS: MethylPREDNISolone 40 MG/ML VIAL IVP SCH (08:02)
[2020-06-30] MEDS: Furosemide 40 MG/4 ML VIAL IVP SCH ×2 (08:02→20:15)
[2020-06-30] MEDS: Apixaban 5 MG TABLET PO SCH ×2 (08:02→20:14)
[2020-06-30] MEDS: Insulin LISPRO 300 UNITS/3 ML VIAL SUBQ SCH ×4 (08:02→20:15)
[2020-07-01 01:15] LABS: Basophils % 0.2 %; Eosinophils # 0.2 K/mcL (0.0-0.6); Eosinophils % 1.6 %; Hematocrit 40.5 % (37.5-50.1); Immature Granulocytes % 0.7 % (0-4); Lymphocytes # 1.3 K/mcL (0.6-4.6); Lymphocytes % 11.3 %; Mean Corpuscular HGB Conc 32.1 g/dL (31.6-35.5); Mean Corpuscular Hemoglobin 30.2 pg (28.0-33.3); Mean Corpuscular Volume 94.2 fL (83.0-100.0); Monocytes # 1.2 K/mcL (0.0-1.3); Monocytes % 10.8 %; Neutrophils # 8.5 K/mcL (1.6-8.9); Platelet Count 162 K/mcL (140-400); Red Cell Distribution Width 15.9 % (11.5-14.5); Segmented Neutrophils % 75.4 %; White Blood Count 11.3 K/mcL (4.3-11.1)
[2020-07-01 01:37] LABS: BUN/Creatinine Ratio 42 (6-26); Blood Urea Nitrogen 31 mg/dL (8-23); Calcium 8.9 mg/dL (8.6-10.3); Carbon Dioxide 36 mEq/L (23-29); Chloride 94 mEq/L (98-107); Glucose 180 mg/dL (70-105); Osmolality,Calculated 295 (280-300); Potassium 3.7 mEq/L (3.5-5.1); Sodium 137 mEq/L (136-145); eGFR For African Americans > 60 (> 60); eGFR For Non-African Americans > 60 (> 60)
[2020-07-01] MEDS: Ipratropium/Albuterol Neb 3 ML IH SCH ×4 (04:15→22:54)
[2020-07-01] MEDS: Apixaban 5 MG TABLET PO SCH ×2 (07:39→20:35)
[2020-07-01] MEDS: levoFLOXacin 750 MG TABLET PO SCH (07:39)
[2020-07-01] MEDS: MethylPREDNISolone 40 MG/ML VIAL IVP SCH (07:40)
[2020-07-01] MEDS: Insulin LISPRO 300 UNITS/3 ML VIAL SUBQ SCH ×4 (07:40→20:35)
[2020-07-01] MEDS: Furosemide 40 MG/4 ML VIAL IVP SCH ×2 (07:40→20:36)
[2020-07-01] MEDS: *HR* HYDROcodone/Acet 5/325 mg TABLET PO PRN ×2 (10:57→20:37)
[2020-07-02] MEDS: Ipratropium/Albuterol Neb 3 ML IH SCH ×4 (04:05→21:23)
[2020-07-02] MEDS ORDERED: *HR* LORazepam 2 MG/ML VIAL IVP ONE ×2 (05:57→06:12)
[2020-07-02] MEDS ORDERED: *HR* LORazepam 2 MG/ML VIAL ONE (06:05)
[2020-07-02] MEDS: Furosemide 40 MG/4 ML VIAL IVP SCH ×2 (07:41→20:05)
[2020-07-02] MEDS: MethylPREDNISolone 40 MG/ML VIAL IVP SCH (07:43)
[2020-07-02] MEDS: Insulin LISPRO 300 UNITS/3 ML VIAL SUBQ SCH ×4 (07:43→20:05)
[2020-07-02 08:13] LABS: Basophils % 0.1 %; Eosinophils # 0.1 K/mcL (0.0-0.6); Eosinophils % 0.7 %; Hematocrit 42.1 % (37.5-50.1); Hemoglobin 13.5 g/dL (12.9-16.9); Immature Granulocytes % 0.7 % (0-4); Lymphocytes # 1.1 K/mcL (0.6-4.6); Lymphocytes % 7.6 %; Mean Corpuscular HGB Conc 32.1 g/dL (31.6-35.5); Mean Corpuscular Hemoglobin 30.8 pg (28.0-33.3); Mean Corpuscular Volume 95.9 fL (83.0-100.0); Mean Platelet Volume 11.2 fL (9.4-12.4); Monocytes # 1.6 K/mcL (0.0-1.3); Monocytes % 10.4 %; Platelet Count 198 K/mcL (140-400); Red Blood Count 4.39 M/mcL (4.19-5.50); Red Cell Distribution Width 16.1 % (11.5-14.5); Segmented Neutrophils % 80.5 %; White Blood Count 14.9 K/mcL (4.3-11.1)
[2020-07-02 08:33] LABS: BUN/Creatinine Ratio 43 (6-26); Blood Urea Nitrogen 38 mg/dL (8-23); Calcium 8.8 mg/dL (8.6-10.3); Carbon Dioxide 35 mEq/L (23-29); Chloride 93 mEq/L (98-107); Glucose 177 mg/dL (70-105); Osmolality,Calculated 297 (280-300); Potassium 3.7 mEq/L (3.5-5.1); Sodium 137 mEq/L (136-145); eGFR For African Americans > 60 (> 60); eGFR For Non-African Americans > 60 (> 60)
[2020-07-02] MEDS: Apixaban 5 MG TABLET PO SCH ×2 (11:17→20:04)
[2020-07-02] MEDS: levoFLOXacin 750 MG TABLET PO SCH (11:17)
[2020-07-02 14:19] LABS: Adenovirus Not Detected (Not Detect); Bordetella Pertussis Not Detected (Not Detect); Chlamydophila pneumoniae Not Detected (Not Detect); Coronavirus 229E Not Detected (Not Detect); Coronavirus HKU1 Not Detected (Not Detect); Coronavirus NL63 Not Detected (Not Detect); Coronavirus OC43 Not Detected (Not Detect); Human Metapneumovirus Not Detected (Not Detect); Human Rhinovirus/Enterovirus Not Detected (Not Detect); Influenza A Subtype 2009 H1 Not Detected (Not Detect); Influenza B Not Detected (Not Detect); Mycoplasma pneumoniae Not Detected (Not Detect); Parainfluenza Virus 1 Not Detected (Not Detect); Parainfluenza Virus 2 Not Detected (Not Detect); Parainfluenza Virus 3 Not Detected (Not Detect); Parainfluenza Virus 4 Not Detected (Not Detect); Respiratory Syncytial Virus Not Detected (Not Detect); SARS-CoV-2 Not Detected (Not Detect)
[2020-07-02] MEDS: Piperacillin/Tazobactam 3.375 GM in 0.9 % Sodium Chloride Mini Bag 100 ML IVPB SCH (16:10)
[2020-07-03] MEDS: Piperacillin/Tazobactam 3.375 GM in 0.9 % Sodium Chloride Mini Bag 100 ML IVPB SCH ×4 (01:19→23:46)
[2020-07-03] MEDS: Ipratropium/Albuterol Neb 3 ML IH SCH ×4 (03:41→21:38)
[2020-07-03] MEDS: *HR* HYDROcodone/Acet 5/325 mg TABLET PO PRN ×2 (05:40→19:55)
[2020-07-03 05:50] LABS: Basophils % 0.1 %; Eosinophils # 0.1 K/mcL (0.0-0.6); Eosinophils % 0.5 %; Hematocrit 41.8 % (37.5-50.1); Hemoglobin 13.3 g/dL (12.9-16.9); Immature Granulocytes % 0.8 % (0-4); Lymphocytes % 6.6 %; Mean Corpuscular HGB Conc 31.8 g/dL (31.6-35.5); Mean Corpuscular Hemoglobin 30.2 pg (28.0-33.3); Mean Platelet Volume 11.4 fL (9.4-12.4); Monocytes # 1.9 K/mcL (0.0-1.3); Monocytes % 12.2 %; Neutrophils # 12.1 K/mcL (1.6-8.9); Platelet Count 237 K/mcL (140-400); Red Cell Distribution Width 16.1 % (11.5-14.5); Segmented Neutrophils % 79.8 %; White Blood Count 15.2 K/mcL (4.3-11.1)
[2020-07-03 06:10] LABS: BUN/Creatinine Ratio 41 (6-26); Blood Urea Nitrogen 41 mg/dL (8-23); Calcium 8.4 mg/dL (8.6-10.3); Carbon Dioxide 35 mEq/L (23-29); Chloride 94 mEq/L (98-107); Glucose 148 mg/dL (70-105); Osmolality,Calculated 301 (280-300); Potassium 3.7 mEq/L (3.5-5.1); Sodium 139 mEq/L (136-145); eGFR For African Americans > 60 (> 60); eGFR For Non-African Americans > 60 (> 60)
[2020-07-03] MEDS: Furosemide 40 MG/4 ML VIAL IVP SCH ×2 (08:08→20:00)
[2020-07-03] MEDS: Apixaban 5 MG TABLET PO SCH (08:09)
[2020-07-03] MEDS: MethylPREDNISolone 40 MG/ML VIAL IVP SCH (08:09)
[2020-07-03] MEDS: Insulin LISPRO 300 UNITS/3 ML VIAL SUBQ SCH ×4 (08:18→20:00)
[2020-07-03] MEDS ORDERED: Isovue-370 500 ML BOTTLE IVP ONE (11:00)
[2020-07-04 01:50] LABS: Basophils % 0.1 %; Eosinophils # 0.1 K/mcL (0.0-0.6); Eosinophils % 0.5 %; Hematocrit 41.2 % (37.5-50.1); Hemoglobin 13.1 g/dL (12.9-16.9); Immature Granulocytes % 0.6 % (0-4); Lymphocytes % 7.3 %; Mean Corpuscular HGB Conc 31.8 g/dL (31.6-35.5); Mean Corpuscular Hemoglobin 30.3 pg (28.0-33.3); Mean Corpuscular Volume 95.4 fL (83.0-100.0); Mean Platelet Volume 11.2 fL (9.4-12.4); Neutrophils # 11.1 K/mcL (1.6-8.9); Platelet Count 237 K/mcL (140-400); Red Blood Count 4.32 M/mcL (4.19-5.50); Segmented Neutrophils % 77.5 %; White Blood Count 14.3 K/mcL (4.3-11.1)
[2020-07-04 02:08] LABS: BUN/Creatinine Ratio 45 (6-26); Blood Urea Nitrogen 42 mg/dL (8-23); Calcium 8.3 mg/dL (8.6-10.3); Carbon Dioxide 35 mEq/L (23-29); Chloride 97 mEq/L (98-107); Glucose 87 mg/dL (70-105); Osmolality,Calculated 296 (280-300); Potassium 3.5 mEq/L (3.5-5.1); Sodium 138 mEq/L (136-145); eGFR For African Americans > 60 (> 60); eGFR For Non-African Americans > 60 (> 60)
[2020-07-04] MEDS: Ipratropium/Albuterol Neb 3 ML IH SCH ×4 (04:14→22:18)
[2020-07-04] MEDS: Insulin LISPRO 300 UNITS/3 ML VIAL SUBQ SCH ×4 (07:09→20:50)
[2020-07-04] MEDS: Furosemide 40 MG/4 ML VIAL IVP SCH ×2 (07:44→20:04)
[2020-07-04] MEDS: MethylPREDNISolone 40 MG/ML VIAL IVP SCH (07:44)
[2020-07-04] MEDS: Piperacillin/Tazobactam 3.375 GM in 0.9 % Sodium Chloride Mini Bag 100 ML IVPB SCH ×2 (07:45→15:12)
[2020-07-04] MEDS: *HR* HYDROcodone/Acet 5/325 mg TABLET PO PRN ×2 (07:54→20:04)
[2020-07-04] MEDS ORDERED: *HR* Propofol 200 MG/20 ML VIAL IVP ONE (10:11)
[2020-07-04] MEDS ORDERED: *HR* FentaNYL (PF) 100 MCG/2 ML VIAL ONE (10:11)
[2020-07-04] MEDS ORDERED: Lidocaine -MPF 2% 2 ML VIAL ONE (10:13)
[2020-07-04] MEDS ORDERED: Ondansetron 4 MG/2 ML VIAL ONE (10:13)
[2020-07-04] MEDS ORDERED: Lidocaine HCL 4 ML Topical Solution (Laryng-O-Jet Kit Sterile Pak) TP ONE (10:14)
[2020-07-04] MEDS: Apixaban 5 MG TABLET PO SCH (20:51)
[2020-07-05] MEDS: Piperacillin/Tazobactam 3.375 GM in 0.9 % Sodium Chloride Mini Bag 100 ML IVPB SCH ×4 (00:39→23:29)
[2020-07-05] MEDS: Ipratropium/Albuterol Neb 3 ML IH SCH ×4 (03:28→22:02)
[2020-07-05 08:25] LABS: Basophils % 0.1 %; Eosinophils # 0.1 K/mcL (0.0-0.6); Eosinophils % 0.5 %; Hematocrit 37.6 % (37.5-50.1); Hemoglobin 11.9 g/dL (12.9-16.9); Immature Granulocytes % 0.3 % (0-4); Lymphocytes % 9.5 %; Mean Corpuscular HGB Conc 31.6 g/dL (31.6-35.5); Mean Corpuscular Hemoglobin 31.1 pg (28.0-33.3); Mean Corpuscular Volume 98.2 fL (83.0-100.0); Mean Platelet Volume 10.8 fL (9.4-12.4); Monocytes # 1.5 K/mcL (0.0-1.3); Monocytes % 15.3 %; Neutrophils # 7.5 K/mcL (1.6-8.9); Platelet Count 223 K/mcL (140-400); Red Blood Count 3.83 M/mcL (4.19-5.50); Red Cell Distribution Width 15.9 % (11.5-14.5); Segmented Neutrophils % 74.3 %; White Blood Count 10.1 K/mcL (4.3-11.1)
[2020-07-05 08:39] LABS: BUN/Creatinine Ratio 42 (6-26); Blood Urea Nitrogen 40 mg/dL (8-23); Carbon Dioxide 36 mEq/L (23-29); Chloride 96 mEq/L (98-107); Glucose 138 mg/dL (70-105); Osmolality,Calculated 298 (280-300); Potassium 3.9 mEq/L (3.5-5.1); Sodium 138 mEq/L (136-145); eGFR For African Americans > 60 (> 60); eGFR For Non-African Americans > 60 (> 60)
[2020-07-05] MEDS: Insulin LISPRO 300 UNITS/3 ML VIAL SUBQ SCH ×4 (08:41→20:56)
[2020-07-05] MEDS: *HR* HYDROcodone/Acet 5/325 mg TABLET PO PRN ×2 (09:01→23:28)
[2020-07-05] MEDS: Apixaban 5 MG TABLET PO SCH ×2 (09:43→21:08)
[2020-07-05] MEDS: MethylPREDNISolone 40 MG/ML VIAL IVP SCH (09:43)
[2020-07-05] MEDS: Furosemide 40 MG/4 ML VIAL IVP SCH ×2 (09:44→21:08)
[2020-07-06] MEDS ORDERED: Furosemide 40 MG/4 ML VIAL ONE (02:32)
[2020-07-06] MEDS: Ipratropium/Albuterol Neb 3 ML IH SCH ×4 (02:38→21:52)
[2020-07-06] MEDS ORDERED: Furosemide 40 MG/4 ML VIAL IVP ONE (02:42)
[2020-07-06] MEDS ORDERED: Acetaminophen IV 500 MG/50 ML BAG IVPB ONE (04:30)
[2020-07-06] MEDS ORDERED: Morphine Sulfate 2 MG/ML SYRINGE IVP ONE (04:35)
[2020-07-06] MEDS: Piperacillin/Tazobactam 3.375 GM in 0.9 % Sodium Chloride Mini Bag 100 ML IVPB SCH ×3 (08:34→23:11)
[2020-07-06] MEDS: MethylPREDNISolone 40 MG/ML VIAL IVP SCH (08:36)
[2020-07-06] MEDS: Furosemide 40 MG/4 ML VIAL IVP SCH ×2 (08:36→19:37)
[2020-07-06] MEDS: Apixaban 5 MG TABLET PO SCH (08:43)
[2020-07-06] MEDS: Insulin LISPRO 300 UNITS/3 ML VIAL SUBQ SCH ×4 (09:27→20:01)
[2020-07-06] MEDS ORDERED: Vancomycin 1,250 MG/262.5 ML IV.SOLN IVPB ONE (16:00)
[2020-07-06] MEDS: *HR* HYDROcodone/Acet 5/325 mg TABLET PO PRN (19:36)
[2020-07-07 01:42] LABS: VBG Ionized Calcium 1.08 mmol/L (1.15-1.35)
[2020-07-07 01:51] LABS: Basophils % 0.1 %; Eosinophils % 0.1 %; Hematocrit 38.3 % (37.5-50.1); Hemoglobin 12.2 g/dL (12.9-16.9); Immature Granulocytes % 0.4 % (0-4); Lymphocytes # 1.2 K/mcL (0.6-4.6); Lymphocytes % 8.6 %; Mean Corpuscular HGB Conc 31.9 g/dL (31.6-35.5); Mean Corpuscular Hemoglobin 30.8 pg (28.0-33.3); Mean Corpuscular Volume 96.7 fL (83.0-100.0); Mean Platelet Volume 10.8 fL (9.4-12.4); Monocytes # 1.9 K/mcL (0.0-1.3); Monocytes % 13.7 %; Neutrophils # 10.8 K/mcL (1.6-8.9); Platelet Count 237 K/mcL (140-400); Red Blood Count 3.96 M/mcL (4.19-5.50); Red Cell Distribution Width 15.8 % (11.5-14.5); Segmented Neutrophils % 77.1 %
[2020-07-07] MEDS: Ipratropium/Albuterol Neb 3 ML IH SCH ×4 (03:30→22:36)
[2020-07-07] MEDS: *HR* HYDROcodone/Acet 5/325 mg TABLET PO PRN ×2 (06:33→19:51)
[2020-07-07] MEDS: Insulin LISPRO 300 UNITS/3 ML VIAL SUBQ SCH ×4 (07:13→19:50)
[2020-07-07] MEDS ORDERED: Calcium Gluconate 1gm/50mL 1 GM/50 ML BAG IVPB ONE (08:04)
[2020-07-07] MEDS: Piperacillin/Tazobactam 3.375 GM in 0.9 % Sodium Chloride Mini Bag 100 ML IVPB SCH ×3 (08:13→23:32)
[2020-07-07] MEDS: MethylPREDNISolone 40 MG/ML VIAL IVP SCH (08:16)
[2020-07-07] MEDS: Furosemide 40 MG/4 ML VIAL IVP SCH ×2 (08:16→19:51)
[2020-07-07] MEDS ORDERED: Lidocaine -MPF 2% 2 ML VIAL ONE (09:59)
[2020-07-07] MEDS ORDERED: Lidocaine -MPF 4% 5 ML AMPUL ONE (09:59)
[2020-07-07] MEDS ORDERED: *HR* Succinylcholine 200 MG/10 ML VIAL IVP ONE (10:57)
[2020-07-07] MEDS ORDERED: *HR* Propofol 200 MG/20 ML VIAL IVP ONE (10:57)
[2020-07-07] MEDS ORDERED: *HR* Metoprolol 5 MG/5 ML VIAL IVP ONE ×3 (11:10→12:28)
[2020-07-07] MEDS ORDERED: *HR* Metoprolol 5 MG/5 ML VIAL IVP PRN (11:11)
[2020-07-07] MEDS ORDERED: Ringers Solution, Lactated 1,000 ML ONE (12:03)
[2020-07-08 01:47] LABS: Basophils % 0.2 %; Eosinophils % 0.1 %; Hematocrit 40.3 % (37.5-50.1); Hemoglobin 12.8 g/dL (12.9-16.9); Immature Granulocytes % 0.6 % (0-4); Lymphocytes # 1.3 K/mcL (0.6-4.6); Lymphocytes % 12.3 %; Mean Corpuscular HGB Conc 31.8 g/dL (31.6-35.5); Mean Corpuscular Hemoglobin 30.8 pg (28.0-33.3); Mean Corpuscular Volume 97.1 fL (83.0-100.0); Monocytes # 1.8 K/mcL (0.0-1.3); Monocytes % 17.3 %; Neutrophils # 7.3 K/mcL (1.6-8.9); Platelet Count 263 K/mcL (140-400); Red Blood Count 4.15 M/mcL (4.19-5.50); Red Cell Distribution Width 15.9 % (11.5-14.5); Segmented Neutrophils % 69.5 %; White Blood Count 10.6 K/mcL (4.3-11.1)
[2020-07-08 02:07] LABS: BUN/Creatinine Ratio 40 (6-26); Blood Urea Nitrogen 32 mg/dL (8-23); Calcium 9.2 mg/dL (8.6-10.3); Carbon Dioxide 38 mEq/L (23-29); Chloride 98 mEq/L (98-107); Glucose 61 mg/dL (70-105); Osmolality,Calculated 301 (280-300); Potassium 3.8 mEq/L (3.5-5.1); Sodium 143 mEq/L (136-145); eGFR For African Americans > 60 (> 60); eGFR For Non-African Americans > 60 (> 60)
[2020-07-08] MEDS: Ipratropium/Albuterol Neb 3 ML IH SCH ×4 (04:06→22:37)
[2020-07-08] MEDS: Furosemide 40 MG/4 ML VIAL IVP SCH ×2 (07:31→19:47)
[2020-07-08] MEDS: MethylPREDNISolone 40 MG/ML VIAL IVP SCH (07:31)
[2020-07-08] MEDS: Piperacillin/Tazobactam 3.375 GM in 0.9 % Sodium Chloride Mini Bag 100 ML IVPB SCH ×2 (07:32→15:39)
[2020-07-08] MEDS: Insulin LISPRO 300 UNITS/3 ML VIAL SUBQ SCH ×5 (07:34→23:53)
[2020-07-08] MEDS: *HR* HYDROcodone/Acet 5/325 mg TABLET PO PRN (08:32)
[2020-07-08] MEDS: Apixaban 5 MG TABLET PO SCH (09:28)
[2020-07-08] MEDS: Acetylcysteine 10% 2 ML INHSOL IH SCH ×4 (11:26→22:37)
[2020-07-08] MEDS: *HR* Metoprolol 5 MG/5 ML VIAL IVP SCH (17:51)
[2020-07-09] MEDS: *HR* Metoprolol 5 MG/5 ML VIAL IVP SCH ×4 (00:01→16:33)
[2020-07-09 02:40] LABS: Basophils % 0.2 %; Eosinophils % 0.1 %; Hematocrit 37.2 % (37.5-50.1); Hemoglobin 12.2 g/dL (12.9-16.9); Immature Granulocytes % 0.4 % (0-4); Lymphocytes # 1.2 K/mcL (0.6-4.6); Lymphocytes % 13.1 %; Mean Corpuscular HGB Conc 32.8 g/dL (31.6-35.5); Mean Corpuscular Hemoglobin 31.4 pg (28.0-33.3); Mean Corpuscular Volume 95.6 fL (83.0-100.0); Mean Platelet Volume 10.8 fL (9.4-12.4); Monocytes # 1.3 K/mcL (0.0-1.3); Monocytes % 13.4 %; Neutrophils # 6.9 K/mcL (1.6-8.9); Platelet Count 238 K/mcL (140-400); Red Blood Count 3.89 M/mcL (4.19-5.50); Red Cell Distribution Width 15.6 % (11.5-14.5); Segmented Neutrophils % 72.8 %; White Blood Count 9.5 K/mcL (4.3-11.1)
[2020-07-09 02:43] LABS: INR 1.3
[2020-07-09] MEDS: Acetylcysteine 10% 2 ML INHSOL IH SCH ×8 (03:30→23:37)
[2020-07-09] MEDS: Ipratropium/Albuterol Neb 3 ML IH SCH ×4 (03:30→20:18)
[2020-07-09] MEDS: Insulin LISPRO 300 UNITS/3 ML VIAL SUBQ SCH ×3 (06:49→17:02)
[2020-07-09] MEDS: Furosemide 40 MG/4 ML VIAL IVP SCH ×2 (07:15→20:08)
[2020-07-09] MEDS: Piperacillin/Tazobactam 3.375 GM in 0.9 % Sodium Chloride Mini Bag 100 ML IVPB SCH ×3 (07:15→15:24)
[2020-07-09] MEDS: MethylPREDNISolone 40 MG/ML VIAL IVP SCH (07:17)
[2020-07-09] MEDS ORDERED: *HR* FentaNYL (PF) 100 MCG/2 ML VIAL ONE (09:01)
[2020-07-09] MEDS ORDERED: Lidocaine -MPF 4% 5 ML AMPUL ONE (09:07)
[2020-07-09] MEDS ORDERED: *HR* Rocuronium Bromide 50 MG/5 ML VIAL ONE (09:07)
[2020-07-09] MEDS ORDERED: Lidocaine -MPF 2% 5 ML VIAL INFILT ONE (11:02)
[2020-07-09] MEDS ORDERED: *HR* Propofol 500 MG/50 ML BOTTLE IVP ONE (11:02)
[2020-07-09] MEDS ORDERED: Ondansetron 4 MG/2 ML VIAL IVP ONE (11:02)
[2020-07-10] MEDS: *HR* Metoprolol 5 MG/5 ML VIAL IVP SCH ×3 (00:23→11:34)
[2020-07-10] MEDS: Piperacillin/Tazobactam 3.375 GM in 0.9 % Sodium Chloride Mini Bag 100 ML IVPB SCH ×3 (00:23→16:19)
[2020-07-10] MEDS: Insulin LISPRO 300 UNITS/3 ML VIAL SUBQ SCH ×5 (00:24→23:45)
[2020-07-10 03:34] LABS: Basophils % 0.1 %; Hematocrit 39.5 % (37.5-50.1); Hemoglobin 12.7 g/dL (12.9-16.9); Immature Granulocytes % 0.9 % (0-4); Lymphocytes # 1.3 K/mcL (0.6-4.6); Lymphocytes % 12.7 %; Mean Corpuscular HGB Conc 32.2 g/dL (31.6-35.5); Mean Corpuscular Hemoglobin 30.5 pg (28.0-33.3); Mean Corpuscular Volume 94.7 fL (83.0-100.0); Mean Platelet Volume 10.7 fL (9.4-12.4); Monocytes # 1.7 K/mcL (0.0-1.3); Monocytes % 16.3 %; Neutrophils # 7.1 K/mcL (1.6-8.9); Platelet Count 235 K/mcL (140-400); Red Blood Count 4.17 M/mcL (4.19-5.50); Red Cell Distribution Width 15.7 % (11.5-14.5); White Blood Count 10.2 K/mcL (4.3-11.1)
[2020-07-10] MEDS: Acetylcysteine 10% 2 ML INHSOL IH SCH ×4 (03:59→23:41)
[2020-07-10] MEDS: Ipratropium/Albuterol Neb 3 ML IH SCH ×4 (03:59→23:41)
[2020-07-10] MEDS ORDERED: Apixaban 2.5 MG TABLET PO SCH (09:00)
[2020-07-10] MEDS: MethylPREDNISolone 40 MG/ML VIAL IVP SCH (09:46)
[2020-07-10] MEDS: Furosemide 40 MG/4 ML VIAL IVP SCH (09:47)
[2020-07-10] MEDS: Apixaban 2.5 MG TABLET GTUBE SCH (20:10)
[2020-07-11] MEDS: Piperacillin/Tazobactam 3.375 GM in 0.9 % Sodium Chloride Mini Bag 100 ML IVPB SCH ×3 (00:25→18:51)
[2020-07-11 02:15] LABS: Basophils % 0.1 %; Eosinophils % 0.1 %; Hematocrit 38.4 % (37.5-50.1); Hemoglobin 12.1 g/dL (12.9-16.9); Immature Granulocytes % 0.5 % (0-4); Lymphocytes # 0.9 K/mcL (0.6-4.6); Lymphocytes % 8.4 %; Mean Corpuscular HGB Conc 31.5 g/dL (31.6-35.5); Mean Corpuscular Hemoglobin 30.6 pg (28.0-33.3); Mean Corpuscular Volume 97.2 fL (83.0-100.0); Mean Platelet Volume 10.3 fL (9.4-12.4); Monocytes # 1.6 K/mcL (0.0-1.3); Monocytes % 15.6 %; Neutrophils # 7.9 K/mcL (1.6-8.9); Platelet Count 195 K/mcL (140-400); Red Blood Count 3.95 M/mcL (4.19-5.50); Red Cell Distribution Width 15.7 % (11.5-14.5); Segmented Neutrophils % 75.3 %; White Blood Count 10.5 K/mcL (4.3-11.1)
[2020-07-11] MEDS: Ipratropium/Albuterol Neb 3 ML IH SCH ×4 (04:10→22:26)
[2020-07-11] MEDS: Acetylcysteine 10% 2 ML INHSOL IH SCH ×4 (04:10→22:26)
[2020-07-11] MEDS: Insulin LISPRO 300 UNITS/3 ML VIAL SUBQ SCH ×3 (06:24→18:51)
[2020-07-11] MEDS: Apixaban 2.5 MG TABLET GTUBE SCH (07:37)
[2020-07-11] MEDS: MethylPREDNISolone 40 MG/ML VIAL IVP SCH (07:38)
[2020-07-11] MEDS ORDERED: Furosemide Oral Soln 40 MG/4 ML UDC GTUBE SCH (09:00)
[2020-07-11] MEDS ORDERED: Ondansetron ODT 4 MG TAB.RAPDIS SL PRN (15:37)
[2020-07-11] MEDS ORDERED: D5% in Water 1,000 ML IVC PRN (15:37)
[2020-07-11] MEDS ORDERED: *HR* Dextrose 50 % in Water (Vial) 50 ML VIAL IVP PRN (15:37)
[2020-07-11] MEDS ORDERED: Dextrose Gel 15 GM/37.5 ML TUBE PO PRN ×2 (15:37)
[2020-07-11] MEDS ORDERED: *HR* Metoprolol 5 MG/5 ML VIAL IVP PRN (15:37)
[2020-07-11] MEDS ORDERED: Naloxone 0.4 MG/ML INJ IVP PRN (15:37)
[2020-07-11] MEDS ORDERED: Albuterol 2.5 MG/3 ML NEBULIZER IH PRN (15:37)
[2020-07-12] MEDS: Insulin LISPRO 300 UNITS/3 ML VIAL SUBQ SCH ×4 (00:57→17:08)
[2020-07-12] MEDS: Apixaban 2.5 MG TABLET GTUBE SCH ×4 (01:02→22:45)
[2020-07-12] MEDS ORDERED: *HR* Metoprolol 5 MG/5 ML VIAL IVP ONE (01:21)
[2020-07-12] MEDS: Piperacillin/Tazobactam 3.375 GM in 0.9 % Sodium Chloride Mini Bag 100 ML IVPB SCH ×3 (01:42→17:08)
[2020-07-12] MEDS: Ipratropium/Albuterol Neb 3 ML IH SCH ×4 (03:38→22:20)
[2020-07-12] MEDS: Acetylcysteine 10% 2 ML INHSOL IH SCH ×4 (03:38→22:20)
[2020-07-12 07:24] LABS: Hematocrit 40.4 % (37.5-50.1); Hemoglobin 12.7 g/dL (12.9-16.9); Mean Corpuscular HGB Conc 31.4 g/dL (31.6-35.5); Mean Corpuscular Hemoglobin 30.6 pg (28.0-33.3); Mean Corpuscular Volume 97.3 fL (83.0-100.0); Mean Platelet Volume 11.2 fL (9.4-12.4); Platelet Count 169 K/mcL (140-400); Red Blood Count 4.15 M/mcL (4.19-5.50); Red Cell Distribution Width 15.9 % (11.5-14.5)
[2020-07-12 07:25] LABS: White Blood Count 20.6 K/mcL (4.3-11.1)
[2020-07-12] MEDS ORDERED: Acetaminophen IV 1,000 MG/100 ML BAG IVPB ONE ×2 (07:55→14:00)
[2020-07-12] MEDS ORDERED: 0.9 % Sodium Chloride 1,000 ML IVC ONE (08:15)
[2020-07-12] MEDS ORDERED: predniSONE 20 MG TABLET PO SCH (09:00)
[2020-07-12] MEDS: Furosemide Oral Soln 40 MG/4 ML UDC GTUBE SCH (09:07)
[2020-07-12] MEDS: predniSONE 20 MG TABLET PO SCH ×2 (09:08→17:12)
[2020-07-12] MEDS ORDERED: *HR* Metoprolol 5 MG/5 ML VIAL IVP PRN (12:03)
[2020-07-12] MEDS ORDERED: *HR* Metoprolol 5 MG/5 ML VIAL IVP SCH (18:00)
[2020-07-12 18:39] LABS: eGFR For African Americans > 60 (> 60); eGFR For Non-African Americans > 60 (> 60)
[2020-07-12] MEDS: Vancomycin 1,250 MG/262.5 ML IV.SOLN IVPB SCH (18:54)
[2020-07-13] MEDS: Insulin LISPRO 300 UNITS/3 ML VIAL SUBQ SCH ×5 (02:53→23:58)
[2020-07-13] MEDS: Piperacillin/Tazobactam 3.375 GM in 0.9 % Sodium Chloride Mini Bag 100 ML IVPB SCH (02:59)
[2020-07-13] MEDS: Acetylcysteine 10% 2 ML INHSOL IH SCH ×4 (04:20→22:09)
[2020-07-13] MEDS: Ipratropium/Albuterol Neb 3 ML IH SCH ×4 (04:20→22:09)
[2020-07-13 06:46] LABS: Basophils % 0.2 %; Hematocrit 38.6 % (37.5-50.1); Immature Granulocytes % 0.5 % (0-4); Lymphocytes # 1.2 K/mcL (0.6-4.6); Lymphocytes % 10.4 %; Mean Corpuscular HGB Conc 31.1 g/dL (31.6-35.5); Mean Corpuscular Hemoglobin 30.8 pg (28.0-33.3); Mean Corpuscular Volume 99.2 fL (83.0-100.0); Mean Platelet Volume 11.3 fL (9.4-12.4); Monocytes # 1.4 K/mcL (0.0-1.3); Monocytes % 12.1 %; Neutrophils # 8.9 K/mcL (1.6-8.9); Platelet Count 144 K/mcL (140-400); Red Blood Count 3.89 M/mcL (4.19-5.50); Red Cell Distribution Width 16.4 % (11.5-14.5); Segmented Neutrophils % 76.8 %; White Blood Count 11.6 K/mcL (4.3-11.1)
[2020-07-13] MEDS: Vancomycin 1,250 MG/262.5 ML IV.SOLN IVPB SCH ×2 (06:53→18:20)
[2020-07-13 07:05] LABS: eGFR For African Americans > 60 (> 60); eGFR For Non-African Americans > 60 (> 60)
[2020-07-13] MEDS: predniSONE 20 MG TABLET PO SCH (09:29)
[2020-07-13] MEDS: Apixaban 2.5 MG TABLET GTUBE SCH (09:29)
[2020-07-13] MEDS: Furosemide Oral Soln 40 MG/4 ML UDC GTUBE SCH (09:31)
[2020-07-13] MEDS ORDERED: Piperacillin/Tazobactam 3.375 GM in 0.9 % Sodium Chloride Mini Bag 100 ML IVPB SCH (11:00)
[2020-07-13] MEDS: Apixaban 5 MG TABLET GTUBE SCH (21:48)
[2020-07-14] MEDS: Insulin LISPRO 300 UNITS/3 ML VIAL SUBQ SCH ×3 (03:21→18:17)
[2020-07-14] MEDS: Ipratropium/Albuterol Neb 3 ML IH SCH ×4 (04:13→21:40)
[2020-07-14] MEDS: Acetylcysteine 10% 2 ML INHSOL IH SCH ×4 (04:16→21:40)
[2020-07-14 05:35] LABS: Basophils % 0.1 %; Hematocrit 38.3 % (37.5-50.1); Hemoglobin 11.9 g/dL (12.9-16.9); Immature Granulocytes % 0.5 % (0-4); Lymphocytes # 1.6 K/mcL (0.6-4.6); Lymphocytes % 10.8 %; Mean Corpuscular HGB Conc 31.1 g/dL (31.6-35.5); Mean Corpuscular Volume 99.7 fL (83.0-100.0); Mean Platelet Volume 11.4 fL (9.4-12.4); Monocytes # 1.7 K/mcL (0.0-1.3); Monocytes % 11.9 %; Neutrophils # 11.1 K/mcL (1.6-8.9); Platelet Count 126 K/mcL (140-400); Red Blood Count 3.84 M/mcL (4.19-5.50); Red Cell Distribution Width 16.2 % (11.5-14.5); Segmented Neutrophils % 76.7 %; White Blood Count 14.4 K/mcL (4.3-11.1)
[2020-07-14 05:49] LABS: BUN/Creatinine Ratio 49 (6-26); Blood Urea Nitrogen 32 mg/dL (8-23); Calcium 8.5 mg/dL (8.6-10.3); Carbon Dioxide 38 mEq/L (23-29); Chloride 105 mEq/L (98-107); Glucose 192 mg/dL (70-105); Osmolality,Calculated 318 (280-300); Potassium 2.8 mEq/L (3.5-5.1); Sodium 148 mEq/L (136-145); eGFR For African Americans > 60 (> 60); eGFR For Non-African Americans > 60 (> 60)
[2020-07-14] MEDS: Potassium Chloride Elixir 20 MEQ/15 ML UDC GTUBE SCH ×2 (08:58→11:00)
[2020-07-14] MEDS: Apixaban 5 MG TABLET GTUBE SCH ×2 (09:00→21:02)
[2020-07-14] MEDS: Furosemide Oral Soln 40 MG/4 ML UDC GTUBE SCH (09:00)
[2020-07-14] MEDS: predniSONE 20 MG TABLET PO SCH (09:02)
[2020-07-14 09:28] LABS: Magnesium 2.1 mg/dL (1.6-2.6); Phosphorous 1.7 mg/dL (2.7-4.5)
[2020-07-14] MEDS ORDERED: *HR* LORazepam Oral Conc 2 MG/ML GTUBE PRN (11:03)
[2020-07-15] MEDS: Insulin LISPRO 300 UNITS/3 ML VIAL SUBQ SCH ×2 (00:10→05:43)
[2020-07-15 01:51] LABS: Hematocrit 35.8 % (37.5-50.1); Hemoglobin 11.3 g/dL (12.9-16.9); Mean Corpuscular HGB Conc 31.6 g/dL (31.6-35.5); Mean Corpuscular Hemoglobin 30.7 pg (28.0-33.3); Mean Corpuscular Volume 97.3 fL (83.0-100.0); Mean Platelet Volume 11.5 fL (9.4-12.4); Platelet Count 104 K/mcL (140-400); Red Blood Count 3.68 M/mcL (4.19-5.50); White Blood Count 9.4 K/mcL (4.3-11.1)
[2020-07-15 02:09] LABS: BUN/Creatinine Ratio 47 (6-26); Blood Urea Nitrogen 28 mg/dL (8-23); Calcium 8.4 mg/dL (8.6-10.3); Carbon Dioxide 37 mEq/L (23-29); Chloride 107 mEq/L (98-107); Glucose 129 mg/dL (70-105); Osmolality,Calculated 317 (280-300); Potassium 3.1 mEq/L (3.5-5.1); Sodium 150 mEq/L (136-145); eGFR For African Americans > 60 (> 60); eGFR For Non-African Americans > 60 (> 60)
[2020-07-15] MEDS: Acetylcysteine 10% 2 ML INHSOL IH SCH ×2 (03:58→10:44)
[2020-07-15] MEDS: Ipratropium/Albuterol Neb 3 ML IH SCH ×2 (03:58→10:44)
[2020-07-15 07:14] VITALS: BP 132/73
[2020-07-15] MEDS: Apixaban 5 MG TABLET GTUBE SCH (07:46)
[2020-07-15] MEDS: Furosemide Oral Soln 40 MG/4 ML UDC GTUBE SCH (07:48)
[2020-07-15] MEDS ORDERED: predniSONE 20 MG TABLET GTUBE SCH (09:00)
[2020-07-15] MEDS ORDERED: Scopolamine Patch 1.5 MG PATCH.TD72 TD SCH (11:30)
== END 2020-07-15 13:10 | disposition hospice, inpatient (51) | DRG 871 ==
LOC: SUATTDRO 13:38 → ICNU 13:38 → 2NNU 06-27 15:51 → 3NENU 07-11 15:27 → 2ANU 07-12 18:23
PROVIDERS: ADMIT Pediatrics; ATTEND Internal Medicine

== ENCOUNTER 2020-07-15 11:06 | Inpatient (IN) ==
[2020-07-15] MEDS ORDERED: Albuterol 2.5 MG/3 ML NEBULIZER IH PRN (12:17)
[2020-07-15] MEDS ORDERED: Ondansetron ODT 4 MG TAB.RAPDIS SL PRN (12:17)
[2020-07-15] MEDS ORDERED: *HR* LORazepam Oral Conc 2 MG/ML SL PRN (12:17)
[2020-07-15] MEDS ORDERED: Bisacodyl 10 MG RECTAL SUPPOSITORY RC PRN (12:17)
[2020-07-15] MEDS ORDERED: Scopolamine Patch 1.5 MG PATCH.TD72 TD SCH (12:30)
[2020-07-15] MEDS: Morphine Sulfate Oral CONC 10 MG/0.5 ML ORAL.SYG PO PRN (13:45)
[2020-07-15] MEDS: Atropine 1% Opth Drops 100 DROP/5 ML BOTTLE SL PRN ×3 (13:47→21:49)
[2020-07-16] MEDS: Morphine Sulfate Oral CONC 10 MG/0.5 ML ORAL.SYG PO PRN ×2 (00:25→09:24)
[2020-07-16] MEDS: Atropine 1% Opth Drops 100 DROP/5 ML BOTTLE SL PRN ×4 (09:22→23:40)
[2020-07-16] MEDS: Haloperidol Oral Conc 10 MG/5 ML UDC PO PRN ×2 (09:25→22:10)
[2020-07-16] MEDS ORDERED: Morphine Sulfate Oral CONC 10 MG/0.5 ML ORAL.SYG PO PRN (09:44)
[2020-07-16] MEDS: Morphine Sulfate 2 MG/ML SYRINGE IVP PRN ×2 (10:12→20:11)
[2020-07-16] MEDS: *HR* LORazepam Oral Conc 2 MG/ML SL PRN ×2 (10:12→20:12)
[2020-07-16 19:10] VITALS: BP 135/80
[2020-07-17] MEDS: Atropine 1% Opth Drops 100 DROP/5 ML BOTTLE SL PRN (01:01)
== END 2020-07-17 02:59 | disposition expired | DRG 951 ==
LOC: 2ANU 13:10
PROVIDERS: ADMIT Internal Medicine Hospice and Palliative Medicine; ATTEND Internal Medicine Hospice and Palliative Medicine